=== PATIENT | male | born 1935 | race Caucasian/White ===

== ENCOUNTER → 2018-07-27 | Outpatient (CLI) | payer MEDICARE, OTHER ==
[~2018-07-27] MED LIST: BACL20TA PO; DILT180C88 PO; DOCU100T15 PO; FURO20TA3 PO; GABA100C9 PO; LEVO50TA7 PO; LORA-654 PO; LORA2TAB10 PO; POLY33504 PO; TAMS0.4C36 PO; ZOLP10TA6 PO
[2018-07-27 12:22] LABS: Urine Blood TRACE /uL (Negative); Urine Specific Gravity 1.019 (1.001-1.035)
[2018-07-27 12:53] LABS: Basophils # (auto) 0.1 uL; Basophils % (auto) 0.8 % (0.0-2.0); Eosinophils # (auto) 0.2 uL; Eosinophils % (auto) 1.3 % (0.0-7.0); Hematocrit 53.4 % (41.0-53.0); Hemoglobin 17.1 g/dL (13.5-17.5); Lymphocytes # (auto) 1.1 uL; Lymphocytes % (auto) 8.7 % (10.0-50.0); Mean Corpuscular Hemoglobin 27.8 pg (28.0-32.0); Mean Corpuscular Volume 86.6 fL (80.0-100.0); Monocytes # (auto) 1.1 uL; Monocytes % (auto) 8.9 % (0.0-12.0); Neutrophils # (auto) 9.9 uL; Neutrophils % (auto) 80.3 % (37.0-80.0); Nucleated Red Blood Cells % 0.6 %; Platelet Count (auto) 185 10^3/uL (140-450); Red Blood Cells 6.16 10^6/uL (4.5-5.90); Red Cell Distribution Width 16.9 % (11.8-14.3); White Blood Cell 12.3 10^3/uL (4.4-10.8)
[2018-07-27 13:40] LABS: Free T4 (Free Thyroxine) 1.04 ng/dL (0.89-1.76)
[2018-07-27 13:41] LABS: Prostate Specific Antigen 0.94 ng/mL (0.0-4.0)
[2018-07-27 14:21] LABS: Potassium 4.8 mmol/L (3.5-5.1)
[2018-07-27 14:36] LABS: Albumin 3.6 g/dL (3.4-5.0); BUN/Creatinine Ratio 19.1; Bilirubin, Total 0.9 mg/dL (0.2-1.0); Calcium 9.3 mg/dL (8.5-10.1); Total Protein 7.5 g/dL (6.4-8.2)
== END | disposition home or self-care (01) ==
LOC: LAB 08:23
PROVIDERS: ATTEND Internal Medicine Cardiovascular Disease
DX: E11.9 Type 2 diabetes mellitus without complications (principal); D51.9 Vitamin B12 deficiency anemia, unspecified; E03.9 Hypothyroidism, unspecified; E55.9 Vitamin D deficiency, unspecified; E29.1 Testicular hypofunction; C61 Malignant neoplasm of prostate; N39.0 Urinary tract infection, site not specified; Z79.899 Other long term (current) drug therapy
CPT/HCPCS: 36415; 80053; 80061; 81003; 82306; 82607; 83036; 84153; 84403; 84439; 84443; 85025; 87086

== ENCOUNTER → 2018-08-18 | Outpatient (CLI) | payer MEDICARE, OTHER ==
[~2018-08-18] MED LIST changes: -FURO20TA3 PO; -LORA-654 PO
== END | disposition home or self-care (01) ==
LOC: Rad HDHVI 10:05
PROVIDERS: ATTEND Internal Medicine Cardiovascular Disease
DX: I08.8 Other rheumatic multiple valve diseases (principal); I49.5 Sick sinus syndrome; R00.2 Palpitations; I11.9 Hypertensive heart disease without heart failure
CPT/HCPCS: 93306

== ENCOUNTER → 2018-08-24 | Emergency (ER) | payer MEDICARE, OTHER ==
[~2018-08-24] VITALS: Ht 182.9 cm; Wt 80.7 kg
[~2018-08-24] MED LIST changes: +ALBUTEROL SULF 2.5 MG/0.5ML(0.5%) NEB SOLN NEB ONE; +FAMOTIDINE (10MG/ML) 2ML VL IV ONE; +HYDROmorphone HCL 2 MG/ML VL IM ONE; +IPRATROPIUM BROM 0.5 MG/2.5ML INH SOL NEB ONE; +ONDANSETRON HCL 4 MG/2 ML VIAL IM ONE; +SODIUM CHLORIDE 0.9% 1,000 ML IV ONE
[2018-08-24 21:40] VITALS: BP 150/96
== END | disposition home or self-care (01) ==
LOC: ER 21:07
DX: S33.5XXA Sprain of ligaments of lumbar spine, initial encounter (principal); M54.16 Radiculopathy, lumbar region; M79.18 Myalgia, other site; J44.9 Chronic obstructive pulmonary disease, unspecified; E11.9 Type 2 diabetes mellitus without complications; I10 Essential (primary) hypertension; I25.2 Old myocardial infarction; Z86.39 Personal history of other endocrine, nutritional and metabolic disease; Z87.891 Personal history of nicotine dependence; Z88.0 Allergy status to penicillin; Z88.6 Allergy status to analgesic agent; Z79.899 Other long term (current) drug therapy; X58.XXXA Exposure to other specified factors, initial encounter; Y93.01 Activity, walking, marching and hiking; Y92.89 Other specified places as the place of occurrence of the external cause; Y99.8 Other external cause status
CPT/HCPCS: 96372; 99283; J1170; J2405

== ENCOUNTER → 2018-09-01 | Outpatient (CLI) | payer MEDICARE, OTHER ==
[~2018-09-01] MED LIST changes: -ALBUTEROL SULF 2.5 MG/0.5ML(0.5%) NEB SOLN NEB ONE; -FAMOTIDINE (10MG/ML) 2ML VL IV ONE; -HYDROmorphone HCL 2 MG/ML VL IM ONE; -IPRATROPIUM BROM 0.5 MG/2.5ML INH SOL NEB ONE; -ONDANSETRON HCL 4 MG/2 ML VIAL IM ONE; -SODIUM CHLORIDE 0.9% 1,000 ML IV ONE
== END | disposition home or self-care (01) ==
LOC: Rad HDHVI 10:37
PROVIDERS: ATTEND Internal Medicine
DX: M81.0 Age-related osteoporosis without current pathological fracture (principal)
CPT/HCPCS: 77078

== ENCOUNTER → 2018-09-06 | Outpatient (CLI) | payer MEDICARE, OTHER ==
[~2018-09-06] VITALS: Ht 182.9 cm; Wt 77.1 kg
[~2018-09-06] MED LIST changes: +ADENOSINE 65 MG in GIVE UN-DILUTED 0 ML IV ONE; +ADENOSINE 90 MG/30 ML INJ IV ONE
== END | disposition home or self-care (01) ==
LOC: Rad HDHVI 13:43
PROVIDERS: ATTEND Internal Medicine Cardiovascular Disease
DX: R94.31 Abnormal electrocardiogram [ECG] [EKG] (principal); I48.91 Unspecified atrial fibrillation; I25.10 Atherosclerotic heart disease of native coronary artery without angina pectoris; I25.2 Old myocardial infarction; I45.10 Unspecified right bundle-branch block; Z95.0 Presence of cardiac pacemaker
CPT/HCPCS: 78452; 93005; 96374; 96375; A9500; J0153

== ENCOUNTER 2018-11-11 14:04 | Inpatient (IN) | payer MEDICARE, OTHER ==
[~2018-11-11] VITALS: Ht 182.9 cm; Wt 70.1 kg
[~2018-11-11 14:04] MED LIST changes: -ADENOSINE 65 MG in GIVE UN-DILUTED 0 ML IV ONE; -ADENOSINE 90 MG/30 ML INJ IV ONE
[2018-11-11] MEDS ORDERED: KETOROLAC TROMETH 30 MG/ML 1ML VIAL IV ONE (16:00)
[2018-11-11 16:02] LABS: Basophils # (auto) 0 uL; Basophils % (auto) 0.2 % (0.0-2.0); Eosinophils # (auto) 0 uL; Hematocrit 49.6 % (41.0-53.0); Hemoglobin 16.6 g/dL (13.5-17.5); Lymphocytes # (auto) 0.5 uL; Lymphocytes % (auto) 3.4 % (10.0-50.0); Mean Corpuscular Hgb Conc. 33.4 g/dL (32.0-36.0); Mean Corpuscular Volume 86.7 fL (80.0-100.0); Monocytes # (auto) 0.7 uL; Monocytes % (auto) 4.8 % (0.0-12.0); Neutrophils # (auto) 14.3 uL; Neutrophils % (auto) 91.6 % (37.0-80.0); Nucleated Red Blood Cells % 0.1 %; Platelet Count (auto) 248 10^3/uL (140-450); Red Blood Cells 5.72 10^6/uL (4.5-5.90); Red Cell Distribution Width 16.5 % (11.8-14.3); White Blood Cell 15.6 10^3/uL (4.4-10.8)
[2018-11-11 16:12] LABS: Albumin 3.8 g/dL (3.4-5.0); BUN/Creatinine Ratio 14.7; Calcium 9.4 mg/dL (8.5-10.1); Potassium 3.9 mmol/L (3.5-5.1)
[2018-11-11 16:16] LABS: Bilirubin, Total 0.9 mg/dL (0.2-1.0); Total Protein 8.2 g/dL (6.4-8.2)
[2018-11-11] MEDS ORDERED: SODIUM CHLORIDE 0.9% 1,000 ML IV ONE (17:15)
[2018-11-11] MEDS ORDERED: LORazepam 2MG/ML-1ML VIAL IV ONE (19:00)
[2018-11-11 22:36] LABS: Urine Bacteria FEW /hpf (None Seen); Urine Blood 3+ /uL (Negative); Urine Hyaline Cast FEW /lpf (0 - 2); Urine Mucus FEW (None Seen); Urine Specific Gravity 1.017 (1.001-1.035); Urine WBC 3 /hpf (0 - 3)
[2018-11-11] MEDS ORDERED: NITROGLYCERIN 0.4 MG SL TAB SL PRN (23:30)
[2018-11-11] MEDS ORDERED: DILT-26 PO (23:41)
[2018-11-11] MEDS ORDERED: FUR20T PO (23:41)
[2018-11-11] MEDS ORDERED: CLOP75TA41 PO (23:41)
[2018-11-11] MEDS ORDERED: ZOLP5TAB5 PO (23:41)
[2018-11-11] MEDS ORDERED: METH500T6 PO (23:41)
[2018-11-11] MEDS ORDERED: [UNRECOGNIZED DRUG - CODE] TD (23:41)
[2018-11-11] MEDS ORDERED: AMLO10TA13 PO (23:41)
[2018-11-11] MEDS ORDERED: LIDO1PAD55 TD (23:41)
[2018-11-11] MEDS ORDERED: SERT-160 PO (23:41)
[2018-11-11] MEDS ORDERED: ATOR1TAB PO (23:41)
[2018-11-11] MEDS ORDERED: GABA-339 PO (23:41)
[2018-11-11] MEDS ORDERED: MEGE40TA15 PO (23:41)
[2018-11-12] VITALS (9 sets, daily range): BP systolic 139–168; BP diastolic 76–110
--- NOTE | 2018-11-12 00:18 | NUR ---
RECEIVED PATIENT FROM ED VIA STRETCHER, AWAKE, ALERT, ORIENTED X4. NO S/S OF RESPIRATORY DISTRESS, DENIES ABDOMINAL PAIN, NAUSEA, VOMITING AND DIARRHEA. ORIENTED ON PLAN OF CARE. BED IS LOCKED AND IN LOWEST POSITION, SIDE RAILS UP X2, BED ALARM ON, CALL LIGHT WITHIN REACH. WILL CONTINUE TO MONITOR
[2018-11-12] MEDS: SODIUM CHLORIDE 0.9% 1,000 ML IV SCH ×2 (00:31→13:50)
--- NOTE | 2018-11-12 02:10 | NUR ---
ABRASIONS ON THE RIGHT FOOT, LEFT ELBOW AND SKIN TEAR LEFT UPPER ARM NOTED. PHOTOS TAKEN
--- NOTE | 2018-11-12 04:13 | NUR ---
PAGED DR. VIEIRA REGARDING ORDER IN ED TO START ZOSYN 4.5 GM IV Q8H. UNABLE TO ENTER THE ORDER, PATIENT IS ALLERGIC TO PENICILLINS. WAITING FOR CALL BACK
[2018-11-12] MEDS ORDERED: ZOLPIDEM TARTRATE 5 MG TAB PO PRN (04:30)
[2018-11-12] MEDS ORDERED: GABAPENTIN 100 MG CAP PO SCH ×2 (04:30)
[2018-11-12] MEDS: MEGESTROL ACETATE 20 MG TAB PO SCH ×3 (04:30→21:35)
[2018-11-12] MEDS: METHOCARBAMOL 500 MG TAB PO SCH ×4 (05:42→21:36)
[2018-11-12] MEDS: LEVOTHYROXINE SODIUM 50 MCG TAB PO SCH (05:42)
--- NOTE | 2018-11-12 05:58 | NUR ---
CONTACTED DR. VIEIRA, PATIENT'S BLOOD PRESSURE IS AT 160'S SYSTOLIC, NO PRN ANTIHYPERTENSIVE MEDICATION ORDERED. WAITING FOR CALL BACK
--- NOTE | 2018-11-12 06:44 | NUR ---
LATEST BLOOD PRESSURE 148/76. WILL CONTINUE TO MONITOR
[2018-11-12] MEDS ORDERED: GABAPENTIN 100 MG CAP PO PRN (07:30)
--- NOTE | 2018-11-12 07:42 | NUR ---
CARE ENDORSED TO AM SHIFT RN
[2018-11-12] MEDS: amLODIPine BESYLATE 5 MG TAB PO SCH (10:00)
[2018-11-12] MEDS: FUROSEMIDE 20 MG TAB PO SCH ×2 (10:00→21:35)
[2018-11-12] MEDS: LIDOCAINE 5% TOPICAL PATCH TOP SCH (10:00)
[2018-11-12] MEDS: CLOPIDOGREL BISULFATE 75 MG TAB PO SCH (10:00)
[2018-11-12] MEDS: DILTIAZEM HCL 180MG ER CAP PO SCH (10:00)
[2018-11-12] MEDS: TAMSULOSIN HYDROCHLORIDE 0.4 MG CAP PO SCH (10:00)
[2018-11-12] MEDS ORDERED: ONDANSETRON HCL 4 MG/2 ML VIAL ONE (10:29)
[2018-11-12] MEDS ORDERED: ONDANSETRON HCL 4 MG/2 ML VIAL IV PRN (10:30)
--- NOTE | 2018-11-12 12:01 | NUR ---
Nutrition consult/assessment Notes Please see attached link for complete assessment Est. Needs IBW (81 kg): 3779-1781 kcal (23-25 kcal/kgBW), 65-81 gms pro (0.8-1.0 gms/kgBW r/t elev RFT). Will continue to monitor pertinent labs and reassess nutrient need prn Addendum: 11/12/18 at [address] Amended: Links added.
--- NOTE | 2018-11-12 12:30 | NUR ---
page sent to Dr Peres regarding patient's elevated bp, patient is in need of prn medication, SBP is currently 160, awaiting call back \
--- NOTE | 2018-11-12 13:38 | NUR ---
WOUND CARE NOTE: Wound care in to see patient per wound care request regarding wounds that are noted present on admission. Bedside nurse took photograph of patient's wounds upon admission for reference. Patient is 83 y/o male admitted for Abdominal Pain R/O Cholecystitis. Patient with a history of DM, COPD, htn, hernia, Throid disease, hyperlipidemia, pacemaker. Patient is resting in bed in Rm. 281A. He's awake, alert and able to verbalize needs. Patient is in no stated pain at this time. He's able to assist in turning and repositioning. His Foster score is 17. Patient noted with dry scabbed abrasion to his dorsal R 2nd toe, dry scabbed skin tear to Lt upper arm and open partial thickness skin tear to L elbow measuring 1x1cm. Skin tear is red with ecchymotic laina wound, no drainage/odor noted. Cleansed L elbow skin tear with NS,patted dry with gauze, applied Thera honey gel and covered with band aid. No pressure injury noted. Repositioned patient for comfort facing his Lt side, redistributed pressure points with pillows. Patient tolerated well. No further wound care monitoring needed at this time. RECOMMENDATIONS: BID/PRN cleaning and application of Barrier cream to sacrum as preventative; EOD/PRN dressing change to Lt elbow skin tear per MD order, Dietary Consult due to complaints of abdominal pain, frequent turning and repositioning schedule as condition permits, redistribute pressure points with pillows. Addendum: 11/12/18 at 1825 by Jess Fernandez RN Amended: Links added.
--- NOTE | 2018-11-12 19:23 | NUR ---
OPENING NOTES RECEIVED REPORT FROM DAY SHIFT NURSE. PT IS AWAKE AND ALERT AND ORIENTATED X 4 WITH NO S/S OF DISTRESS NOR PAIN. NO SOB NOTED. PT COMPLAINTS OF NAUSEA. BED IS IN LOWEST POSITION AND SIDE RAILS ARE UP X2. BED BRAKES ARE LOCKED AND CALL LIGHT IS WITH IN REACH. HOB IS 30 DEGREES.
[2018-11-12] MEDS ORDERED: cloNIDine HCL 0.1 MG TAB PO PRN (19:30)
[2018-11-12] MEDS: ZOLPIDEM TARTRATE 5 MG TAB PO SCH (21:35)
[2018-11-12] MEDS: ATORVASTATIN 20 MG TAB PO SCH (21:35)
--- NOTE | 2018-11-13 04:15 | NUR ---
IV removal IV DC'd with sterile technique, catheter fully intact. Pressure dressing applied to site. Patient tolerated procedure well.
--- NOTE | 2018-11-13 04:19 | NUR ---
IV insertion IV access obtained, via clean sterile technique by inserting 22 gauge catheter at left forearm after 2 attempts. IV secured properly. No trauma to site. Patient tolerated well.
[2018-11-13 05:36] VITALS: BP 123/54
[2018-11-13] MEDS: METHOCARBAMOL 500 MG TAB PO SCH ×3 (06:01→22:51)
[2018-11-13] MEDS: LEVOTHYROXINE SODIUM 50 MCG TAB PO SCH (06:01)
--- NOTE | 2018-11-13 07:34 | NUR ---
closing notes endorsed care to day shift nurseAmina.
--- NOTE | 2018-11-13 08:00 | NUR ---
OPENING NOTE: PATIENT RESTING IN BED. NASAL CANNULA IN PLACE. BED IN LOWEST POSITION. COMMODE AT BEDSIDE. CALL LIGHT ON BED WITHIN REACH. NO SIGNS OF DISTRESS NOTED.
[2018-11-13 09:00] VITALS: BP 121/81
[2018-11-13] MEDS: DILTIAZEM HCL 180MG ER CAP PO SCH (10:00)
[2018-11-13] MEDS: LIDOCAINE 5% TOPICAL PATCH TOP SCH (10:00)
[2018-11-13] MEDS: LORazepam 0.5 MG TAB PO PRN (10:32)
[2018-11-13] MEDS: MEGESTROL ACETATE 20 MG TAB PO SCH ×2 (10:43→22:52)
[2018-11-13] MEDS: CLOPIDOGREL BISULFATE 75 MG TAB PO SCH (10:43)
[2018-11-13] MEDS: amLODIPine BESYLATE 5 MG TAB PO SCH (10:44)
[2018-11-13] MEDS: TAMSULOSIN HYDROCHLORIDE 0.4 MG CAP PO SCH (10:44)
[2018-11-13] MEDS: FUROSEMIDE 20 MG TAB PO SCH ×2 (10:45→22:53)
[2018-11-13] MEDS: GABAPENTIN 300 MG CAP PO SCH ×2 (10:45→22:53)
--- NOTE | 2018-11-13 12:14 | NUR ---
FAMILY AT BEDSIDE. UPDATED ON PLAN OF CARE. DISCUSSED PATIENTS EMOTIONAL STATE, AND WORKED TOGETHER TO HELP SOOTHE PATIENT.
[2018-11-13 13:00] VITALS: BP 104/67
[2018-11-13] MEDS: SERTRALINE HCL 50 MG TAB PO SCH ×2 (14:11→22:53)
--- NOTE | 2018-11-13 18:56 | NUR ---
PATIENT RESTING IN BED. BED ALARM IN PLACE. NASAL CANNULA IN USE, BED IN LOWEST POSITION, AND EDUCATED USE OF CALL LIGHT. ASSISTED TO A COMFORTABLE POSITION IN BED, NO DISTRESS OR PAIN NOTED AT THIS TIME.
--- NOTE | 2018-11-13 19:15 | NUR ---
RE: Low urine output Patient reports one time of urination. Urine output total for shift 125ml. This RN asked patient if he felt the urge to urinate. Patient stated "I could probably go right now." This RN asked patient his normal urine output for the day. Patient stated "usually about what I went earlier, sometimes a little more." Bladder scan performed. 225ml of urine upon scan. This RN encouraged fluid intake. Patient verbalized understanding. Notified GHANSHYAM Lopez RN.
--- NOTE | 2018-11-13 19:20 | NUR ---
Fall precautions in place bed in lowest locked position, x2 side rails up and call light within reach. Bed alarm on for safety. Patient educated on fall precautions. Patient verbalized understanding.
--- NOTE | 2018-11-13 19:29 | NUR ---
OPENING NOTES RECEIVED REPORT FROM DAY SHIFT NURSE. PT IS AWAKE AND ALERT AND ORIENTATED X 4 WITH NO S/S OF DISTRESS NOR PAIN. NO SOB NOTED. BED IS IN LOWEST POSITION AND SIDE RAILS ARE UP X2. BED BRAKES ARE LOCKED AND CALL LIGHT IS WITH IN REACH. HOB IS 30 DEGREES.
--- NOTE | 2018-11-13 19:36 | NUR ---
CARE ENDORSED TO AUSTYN ENRIQUEZ
[2018-11-13 20:00] VITALS: BP 121/81
--- NOTE | 2018-11-13 20:37 | NUR ---
MD INFORMED MD ON PT'S STATUS. AWAITING CALL BACK.
--- NOTE | 2018-11-13 20:41 | NUR ---
MD PADILLA CALLED BACK, NEW ORDERS GIVEN.
[2018-11-13 22:00] VITALS: BP 102/66
[2018-11-13] MEDS: ZOLPIDEM TARTRATE 5 MG TAB PO SCH (22:00)
[2018-11-13] MEDS ORDERED: LEVOFLOXACIN 500MG 100 ML IV ONE (22:30)
[2018-11-13] MEDS: ATORVASTATIN 20 MG TAB PO SCH (22:53)
--- NOTE | 2018-11-14 04:28 | NUR ---
URINE OUTPUT PT HAD URINE OUTPUT OF 500ML.
[2018-11-14 05:00] VITALS: BP 105/57
[2018-11-14] MEDS: LEVOTHYROXINE SODIUM 50 MCG TAB PO SCH (05:55)
[2018-11-14] MEDS: METHOCARBAMOL 500 MG TAB PO SCH ×3 (05:55→22:14)
[2018-11-14] MEDS: SERTRALINE HCL 50 MG TAB PO SCH ×3 (05:56→22:14)
--- NOTE | 2018-11-14 07:17 | NUR ---
CLOSING NOTES ENDORSED CARE TO DAY SHIFT NURSESHARON.
--- NOTE | 2018-11-14 08:22 | NUR ---
OPENING NOTE: PATIENT RESTING IN BED. ASSISTED WITH REPOSITIONING AND ASSESSED SACRAL AREA. REMINDED PATIENT TO OFFLOAD BY TURNING EVERY 2 HOURS. ENCOURAGED WATER. PATIENT VERBALIZED UNDERSTANDING. PATIENT STATED HE FELT ANXIOUS. WILL MEDICATE ORDERED. CALL LIGHT IN HAND. BED LOCKED AND IN LOWEST POSITION. BED ALARM ON.
[2018-11-14 09:00] VITALS: BP 118/73
[2018-11-14] MEDS: TAMSULOSIN HYDROCHLORIDE 0.4 MG CAP PO SCH (09:06)
[2018-11-14] MEDS: MEGESTROL ACETATE 20 MG TAB PO SCH ×2 (09:06→22:14)
[2018-11-14] MEDS: DILTIAZEM HCL 180MG ER CAP PO SCH (09:06)
[2018-11-14] MEDS: CLOPIDOGREL BISULFATE 75 MG TAB PO SCH (09:07)
[2018-11-14] MEDS: FUROSEMIDE 20 MG TAB PO SCH ×2 (09:07→22:14)
[2018-11-14] MEDS: LORazepam 0.5 MG TAB PO PRN ×2 (09:07→17:08)
[2018-11-14] MEDS: GABAPENTIN 300 MG CAP PO SCH ×2 (09:07→22:14)
[2018-11-14] MEDS: amLODIPine BESYLATE 5 MG TAB PO SCH (09:08)
[2018-11-14] MEDS: LIDOCAINE 5% TOPICAL PATCH TOP SCH (09:08)
--- NOTE | 2018-11-14 11:10 | NUR ---
was at bedside - Dr. Peres Spoke with Dr. Peres RE: POC. Updated MD on urinary output during 11/13/18 shift. MD verbalized understanding. Continue to monitor input and output. Encourage fluid intake.
[2018-11-14 13:22] VITALS: BP 121/71
--- NOTE | 2018-11-14 13:37 | NUR ---
FAMILY AT BEDSIDE.
--- NOTE | 2018-11-14 13:57 | NUR ---
PATIENT TOLERATED MECHANICAL SOFT DIET. FAMILY UPDATED ON PLAN OF CARE. PATIENT RESTING IN BED.
[2018-11-14 16:46] VITALS: BP 111/77
--- NOTE | 2018-11-14 18:02 | NUR ---
CLOSING NOTE: PATIENT RESTING IN BED. NO SIGNS OF ANXIETY OR DISTRESS NOTED. FAMILY AT BEDSIDE. PATIENT ON ROOM AIR, BREATHING EVEN AND UNLABORED. CALL LIGHT WITHIN REACH.
--- NOTE | 2018-11-14 19:04 | NUR ---
ENDORSED CARE TO AUSTYN ENRIQUEZ
[2018-11-14 20:00] VITALS: BP 118/73
[2018-11-14 21:00] VITALS: BP 101/57
[2018-11-14] MEDS: ZOLPIDEM TARTRATE 5 MG TAB PO SCH (22:11)
[2018-11-14] MEDS: LEVOFLOXACIN 250MG 50 ML IV SCH (22:11)
[2018-11-14] MEDS: ATORVASTATIN 20 MG TAB PO SCH (22:14)
[2018-11-15 04:30] VITALS: BP 125/69
[2018-11-15] MEDS: SERTRALINE HCL 50 MG TAB PO SCH ×3 (05:56→21:20)
[2018-11-15] MEDS: LEVOTHYROXINE SODIUM 50 MCG TAB PO SCH (05:56)
[2018-11-15] MEDS: METHOCARBAMOL 500 MG TAB PO SCH ×3 (05:56→21:20)
--- NOTE | 2018-11-15 07:10 | NUR ---
Opening Note Received report from third shift lieutenant RN. Patient is awake, alert and oriented x4. No signs or symptoms of distress noted at this time. Patient is on 2L NC, denies shortness of breath at this time. Patient denies pain at this time. Reviewed plan of care with patient, patient verbalized understanding. Bed in low and locked position, call light within reach. Will continue to monitor Q1 hour and PRN.
--- NOTE | 2018-11-15 07:29 | NUR ---
CLOSING NOTES ENDORSED CARE TO DAY SHIFT NURSE, SUMMER.
[2018-11-15 09:10] VITALS: BP 115/73
--- NOTE | 2018-11-15 09:40 | NUR ---
PT at bedside Patient ambulated to hallway with physical therapist. Patient ambulated using front wheel walker. Patient tolerated well. Patient requested to go back to bed, did not want to sit up in chair. Will continue to monitor Q1 hour and PRN.
[2018-11-15] MEDS: LIDOCAINE 5% TOPICAL PATCH TOP SCH (10:00)
[2018-11-15] MEDS: CLOPIDOGREL BISULFATE 75 MG TAB PO SCH (10:06)
[2018-11-15] MEDS: GABAPENTIN 300 MG CAP PO SCH ×2 (10:06→21:20)
[2018-11-15] MEDS: TAMSULOSIN HYDROCHLORIDE 0.4 MG CAP PO SCH (10:06)
[2018-11-15] MEDS: amLODIPine BESYLATE 5 MG TAB PO SCH (10:07)
[2018-11-15] MEDS: MEGESTROL ACETATE 20 MG TAB PO SCH ×2 (10:07→21:20)
[2018-11-15] MEDS: FUROSEMIDE 20 MG TAB PO SCH ×2 (10:07→21:20)
[2018-11-15] MEDS: DILTIAZEM HCL 180MG ER CAP PO SCH (10:08)
--- NOTE | 2018-11-15 11:50 | NUR ---
family at bedside
[2018-11-15] MEDS: LORazepam 0.5 MG TAB PO PRN (11:52)
--- NOTE | 2018-11-15 11:53 | NUR ---
Anxiety Patient complains of feeling anxious, patient is visibly upset. Family at bedside. Per family patient gets "very emotional and anxious at times." Will medicate with PRN Ativan as ordered. Will continue to monitor Q1 hour and PRN.
[2018-11-15 12:42] VITALS: BP 118/89
[2018-11-15 16:32] VITALS: BP 122/67
--- NOTE | 2018-11-15 19:05 | NUR ---
Closing Note Report given to shift superintendent RN. No signs or symptoms of distress noted at this time.
--- NOTE | 2018-11-15 19:35 | NUR ---
OPENING SHIFT NOTE RECEIVED REPORT FROM DAYSHIFT RN. PATIENT LYING IN BED WATCHING TELEVISION, NO S/S OF DISTRESS OR SOB. PATIENT COMPLAINS OF BILAT FOOT PAIN, REQUESTING PAIN MEDICATION. WILL MEDICATE PER MEDICATION ORDERS. PATIENT A/O X4, BEDREST. UPDATED PATIENT ON POC, VERBALIZED UNDERSTANDING. BED LOCKED IN LOW POSITION, CALL LIGHT WITHIN REACH. WILL CONTINUE TO MONITOR PATIENT Q1HR AND PRN.
[2018-11-15] MEDS ORDERED: oxyCODONE ER 10 MG TAB PO PRN (20:45)
[2018-11-15] MEDS: LEVOFLOXACIN 250MG 50 ML IV SCH (21:19)
[2018-11-15] MEDS: ZOLPIDEM TARTRATE 5 MG TAB PO SCH (21:19)
[2018-11-15] MEDS: ATORVASTATIN 20 MG TAB PO SCH (21:20)
[2018-11-15 21:54] VITALS: BP 131/62
[2018-11-15] MEDS: oxyCODONE ER 10 MG TAB PO PRN (22:02)
[2018-11-16 05:18] VITALS: BP 112/68
[2018-11-16] MEDS: SERTRALINE HCL 50 MG TAB PO SCH ×2 (05:43→14:05)
[2018-11-16] MEDS: LEVOTHYROXINE SODIUM 50 MCG TAB PO SCH (05:43)
[2018-11-16] MEDS: METHOCARBAMOL 500 MG TAB PO SCH ×2 (05:43→14:05)
[2018-11-16] MEDS: oxyCODONE ER 10 MG TAB PO PRN (06:26)
--- NOTE | 2018-11-16 07:16 | NUR ---
Opening Note Received report from inpatient nursing aide RN. Patient is awake, alert and oriented x4. No signs or symptoms of distress noted at this time. Patient is on 2L NC, denies shortness of breath. Patient denies pain at this time. Reviewed plan of care with patient, patient verbalized understanding. Bed in low and locked position, call light within reach. Will continue to monitor Q1 hour and PRN.
[2018-11-16 08:47] VITALS: BP 127/66
[2018-11-16] MEDS: LIDOCAINE 5% TOPICAL PATCH TOP SCH (10:00)
[2018-11-16] MEDS: MEGESTROL ACETATE 20 MG TAB PO SCH (10:07)
[2018-11-16] MEDS: GABAPENTIN 300 MG CAP PO SCH (10:08)
[2018-11-16] MEDS: CLOPIDOGREL BISULFATE 75 MG TAB PO SCH (10:08)
[2018-11-16] MEDS: TAMSULOSIN HYDROCHLORIDE 0.4 MG CAP PO SCH (10:08)
[2018-11-16] MEDS: amLODIPine BESYLATE 5 MG TAB PO SCH (10:08)
[2018-11-16] MEDS: FUROSEMIDE 20 MG TAB PO SCH (10:08)
[2018-11-16] MEDS: DILTIAZEM HCL 180MG ER CAP PO SCH (10:09)
--- NOTE | 2018-11-16 11:36 | NUR ---
Paged Dr Prees Patient states he is constipated and is requesting stool softer. Awaiting call back
--- NOTE | 2018-11-16 11:40 | NUR ---
Spoke with Dr. Peres New orders received for Colace 100mg PO BID, and to place social service consult for discharge on home health. Will implement new orders.
[2018-11-16] MEDS ORDERED: DOCUSATE SOD 100 MG CAP PO SCH ×2 (11:45→22:00)
[2018-11-16 12:36] VITALS: BP 122/66
[2018-11-16 16:17] VITALS: BP 127/66
--- NOTE | 2018-11-16 16:22 | NUR ---
D/C Planning Per consult for Home Health. Information and choice letter was given to Pt and Pt [place] was at bed side. Pt stated he was previously with [facility] and wanted the same Home Health. Pt and [place] verbalize and agrees d/c plan. As requested contacted [facility] Ph: ) Fax: ) faxed medical records. Per Carmencita from [facility] to resume service for Pt and service to start tomorrow 11/17/18. Informed RN Summer. Addendum: 11/16/18 at 1632 by BRENNA HANYES Amended: Links added.
[2018-11-16 17:21] VITALS: BP 123/65
--- NOTE | 2018-11-16 17:33 | NUR ---
Discharge Discharge instructions given as ordered. Encourage to follow up with primary care physician as instructed. All questions and concerns addressed. Patient verbalized understanding. Medication reconciliation form completed and copy given to patient. IV catheter removed, catheter intact, pressure dressing applied. monitoring tech removed and sent back ICU. Patient taken down to private vehicle via wheelchair, accompanied by family and staff. No signs or symptoms of distress noted at this time.
== END 2018-11-16 17:33 | disposition home health service (06) | DRG 392 ==
LOC: ER 14:04 → TELE-WESTW 14:05
PROVIDERS: ADMIT Internal Medicine Cardiovascular Disease; ATTEND Internal Medicine Cardiovascular Disease
DX: A09 Infectious gastroenteritis and colitis, unspecified (principal); I50.30 Unspecified diastolic (congestive) heart failure; K80.20 Calculus of gallbladder without cholecystitis without obstruction; I25.10 Atherosclerotic heart disease of native coronary artery without angina pectoris; J44.9 Chronic obstructive pulmonary disease, unspecified; E78.5 Hyperlipidemia, unspecified; E11.9 Type 2 diabetes mellitus without complications; K59.00 Constipation, unspecified; R13.10 Dysphagia, unspecified; G62.9 Polyneuropathy, unspecified; I11.0 Hypertensive heart disease with heart failure; N40.0 Benign prostatic hyperplasia without lower urinary tract symptoms; Z95.5 Presence of coronary angioplasty implant and graft; Z88.5 Allergy status to narcotic agent; Z88.0 Allergy status to penicillin
CPT/HCPCS: 36415; 74176; 76705; 80053; 81001; 83690; 85025; 87081; 93005; 97110; 97116; 97163; 97530; G0378; J1885; J1956; J2405

== ENCOUNTER → 2019-02-21 | Outpatient (CLI) | payer MEDICARE, OTHER ==
[~2019-02-21] VITALS: Ht 1 cm; Wt 0.5 kg
[~2019-02-21] MED LIST changes: +AMLO10TA13 PO; +ATOR1TAB PO; +BACITRACIN TOP OINT 1 UD PKG TOP ONE; +CLOP75TA41 PO; +FUR20T PO; +GABA-339 PO; -GABA100C9 PO; +LIDO1PAD55 TD; +MEGE40TA15 PO; +METH500T6 PO; +SERT-160 PO; +[UNRECOGNIZED DRUG - CODE] TD
[2019-02-21 12:50] VITALS: BP 120/66
--- NOTE | 2019-02-21 12:50 | NUR ---
CHF PT ARRIVED AT THE [facility] FOR TX AND EVAL AND WOUND CARE FROM THE BACK OFFICE VSS 0 DISTRESS
--- NOTE | 2019-02-21 13:30 | NUR ---
Wound Care Wound care provided per MD order. Patient tolerated well and verbalized dressing care instructions. Follow up in clinic as directed. See e-MAR for medications given during this visit. HOME HEALTH TO FOLLOW UP WITH WOUND CARE AT HOME. LEFT ARM HAD LARGE SKIN TEAR WITH LOSS OF SKIN. MA FRANCE CLEANSED WITH NS AND DRESSED WITH STERI STRIPS AND NON ADHERENT TELFA WITH KERLIX AND STOCKINETTE APPLIED. PT TOLERATED WELL
[2019-02-21 13:58] VITALS: BP 117/82
--- NOTE | 2019-02-21 13:58 | NUR ---
Discharge Instructions See e-MAR for any mediations given with this visit. Patient education given on disease process. Patient verbalized understanding. Previous labs reviewed. Patient discharged in stable condition with after care instructions and follow up appointment. MEDICATION BACITRACIN OINTMENT 1 PACK TO LEFT ARM TEAR
== END | disposition home or self-care (01) ==
LOC: Rad HDHVI 12:36
PROVIDERS: ATTEND Internal Medicine Cardiovascular Disease
DX: I67.2 Cerebral atherosclerosis (principal); G31.9 Degenerative disease of nervous system, unspecified; S41.112A Laceration without foreign body of left upper arm, initial encounter; X58.XXXA Exposure to other specified factors, initial encounter; Y93.89 Activity, other specified; Y92.89 Other specified places as the place of occurrence of the external cause; Y99.8 Other external cause status
CPT/HCPCS: 70450; G0463

== ENCOUNTER → 2019-06-14 | Outpatient (CLI) | payer MEDICARE, OTHER ==
[~2019-06-14] MED LIST changes: -BACITRACIN TOP OINT 1 UD PKG TOP ONE; +METH500T22 PO; -METH500T6 PO
[2019-06-14 11:59] LABS: Basophils # (auto) 0.1 10 ^3/uL (0-0.2); Basophils % (auto) 0.5 % (0.0-2.0); Eosinophils # (auto) 0.4 10 ^3/uL (0-0.8); Eosinophils % (auto) 3.6 % (0.0-7.0); Hemoglobin 15.5 g/dL (13.5-17.5); Lymphocytes # (auto) 2.1 10 ^3/uL (0.4-5.4); Lymphocytes % (auto) 20.3 % (10.0-50.0); Mean Corpuscular Hemoglobin 29.2 pg (28.0-32.0); Mean Corpuscular Volume 88.6 fL (80.0-100.0); Monocytes # (auto) 0.9 10 ^3/uL (0-1.3); Monocytes % (auto) 8.6 % (0.0-12.0); Nucleated Red Blood Cells % 0.1 %; Platelet Count (auto) 236 10^3/uL (140-450); White Blood Cell 10.4 10^3/uL (4.4-10.8)
== END | disposition home or self-care (01) ==
LOC: LAB 09:55
PROVIDERS: ATTEND Internal Medicine Cardiovascular Disease
DX: H47.013 Ischemic optic neuropathy, bilateral (principal); I10 Essential (primary) hypertension
CPT/HCPCS: 36415; 85025; 85652; 86141

== ENCOUNTER 2019-06-22 12:13 | Inpatient (IN) | payer MEDICARE, OTHER ==
[~2019-06-22] VITALS: Ht 182.9 cm; Wt 71.5 kg
[~2019-06-22 12:13] MED LIST changes: -SUCCINYLCHOLINE CHLORIDE 20 MG/ML 10ML VIAL IV ONE
[2019-06-22] MEDS ORDERED: MEPERIDINE HCL (25 MG/ML) 1ML VIAL IV ONE (13:30)
[2019-06-22] MEDS ORDERED: ONDANSETRON HCL 4 MG/2 ML VIAL IV ONE (13:30)
[2019-06-22 13:52] LABS: Basophils # (auto) 0 10 ^3/uL (0-0.2); Basophils % (auto) 0.1 % (0.0-2.0); Eosinophils # (auto) 0 10 ^3/uL (0-0.8); Eosinophils % (auto) 0.1 % (0.0-7.0); Hematocrit 52.1 % (41.0-53.0); Hemoglobin 17.1 g/dL (13.5-17.5); Lymphocytes # (auto) 0.8 10 ^3/uL (0.4-5.4); Lymphocytes % (auto) 4.6 % (10.0-50.0); Mean Corpuscular Hemoglobin 29.1 pg (28.0-32.0); Mean Corpuscular Hgb Conc. 32.9 g/dL (32.0-36.0); Mean Corpuscular Volume 88.4 fL (80.0-100.0); Monocytes # (auto) 1.2 10 ^3/uL (0-1.3); Neutrophils # (auto) 15.4 10 ^3/uL (1.6-8.6); Neutrophils % (auto) 88.2 % (37.0-80.0); Nucleated Red Blood Cells % 0.2 %; Platelet Count (auto) 191 10^3/uL (140-450); Red Blood Cells 5.89 10^6/uL (4.5-5.90); Red Cell Distribution Width 14.8 % (11.8-14.3); White Blood Cell 17.5 10^3/uL (4.4-10.8)
[2019-06-22 14:08] LABS: Albumin 3.9 g/dL (3.4-5.0); Calcium 9.7 mg/dL (8.5-10.1)
[2019-06-22 14:11] LABS: BUN/Creatinine Ratio 17.3; Bilirubin, Total 1.1 mg/dL (0.2-1.0); Total Protein 8.7 g/dL (6.4-8.2)
[2019-06-22 14:12] LABS: Magnesium 2.4 mg/dL (1.6-2.6)
[2019-06-22 16:56] LABS: Urine WBC None Seen /hpf (0 - 3)
[2019-06-22] MEDS ORDERED: NITROGLYCERIN 0.4 MG SL TAB SL PRN (17:00)
[2019-06-22] MEDS ORDERED: HYDROmorphone HCL 2 MG/ML VL IV PRN (17:00)
[2019-06-22] MEDS ORDERED: LORazepam 0.5 MG TAB PO PRN (17:00)
[2019-06-22 17:05] LABS: Urine Bacteria NONE SEEN /hpf (None Seen); Urine Blood 1+ /uL (Negative); Urine Hyaline Cast FEW /lpf (0 - 2); Urine Mucus FEW (None Seen); Urine Specific Gravity 1.018 (1.001-1.035)
[2019-06-22] MEDS ORDERED: ZOLPIDEM TARTRATE 5 MG TAB PO SCH (18:00)
[2019-06-22 18:10] VITALS: BP 125/68
[2019-06-22] MEDS: LIDOCAINE 5% TOPICAL PATCH TOP SCH (18:49)
[2019-06-22] MEDS: TAMSULOSIN HYDROCHLORIDE 0.4 MG CAP PO SCH (18:50)
[2019-06-22] MEDS: FUROSEMIDE 20 MG TAB PO SCH (18:51)
[2019-06-22 21:49] VITALS: BP 126/66
[2019-06-22] MEDS ORDERED: BACLOFEN 10 MG TAB PO SCH (22:00)
[2019-06-22] MEDS: GABAPENTIN 300 MG CAP PO SCH (22:52)
[2019-06-22] MEDS: ATORVASTATIN 20 MG TAB PO SCH (22:52)
[2019-06-22] MEDS: MEGESTROL ACETATE 20 MG TAB PO SCH (22:53)
[2019-06-22] MEDS: SERTRALINE HCL 50 MG TAB PO SCH (22:53)
[2019-06-22] MEDS: ZOLPIDEM TARTRATE 5 MG TAB PO SCH ×2 (22:53→22:56)
[2019-06-22] MEDS: METHOCARBAMOL 500 MG TAB PO SCH (22:54)
[2019-06-23 04:59] VITALS: BP 117/60
[2019-06-23] MEDS: GABAPENTIN 300 MG CAP PO SCH ×3 (05:43→21:54)
[2019-06-23] MEDS: LEVOTHYROXINE SODIUM 50 MCG TAB PO SCH (05:43)
[2019-06-23] MEDS: FUROSEMIDE 20 MG TAB PO SCH ×2 (05:44→17:55)
[2019-06-23] MEDS: SERTRALINE HCL 50 MG TAB PO SCH ×3 (05:44→21:53)
[2019-06-23] MEDS: METHOCARBAMOL 500 MG TAB PO SCH ×3 (05:44→21:53)
[2019-06-23 09:00] VITALS: BP 109/64
[2019-06-23] MEDS: POLYETHYLENE GLYCOL 17 GM PWDR PO SCH (10:27)
[2019-06-23] MEDS: dilTIAZem HCL 180MG ER CAP PO SCH (10:28)
[2019-06-23] MEDS: MEGESTROL ACETATE 20 MG TAB PO SCH ×2 (10:28→21:54)
[2019-06-23] MEDS: amLODIPine BESYLATE 5 MG TAB PO SCH (10:29)
[2019-06-23 11:30] LABS: INR 1.07 (0.9-1.15); Partial Thromboplastin Time 30.8 sec (23.64-32.05)
[2019-06-23 13:00] VITALS: BP 112/61
[2019-06-23 13:17] LABS: Basophils # (auto) 0 10 ^3/uL (0-0.2); Basophils % (auto) 0.3 % (0.0-2.0); Eosinophils # (auto) 0 10 ^3/uL (0-0.8); Eosinophils % (auto) 0.3 % (0.0-7.0); Hematocrit 45.3 % (41.0-53.0); Hemoglobin 15.3 g/dL (13.5-17.5); Lymphocytes % (auto) 6.5 % (10.0-50.0); Mean Corpuscular Hemoglobin 29.9 pg (28.0-32.0); Mean Corpuscular Hgb Conc. 33.7 g/dL (32.0-36.0); Mean Corpuscular Volume 88.7 fL (80.0-100.0); Monocytes # (auto) 1.3 10 ^3/uL (0-1.3); Monocytes % (auto) 8.4 % (0.0-12.0); Neutrophils % (auto) 84.5 % (37.0-80.0); Platelet Count (auto) 164 10^3/uL (140-450); Red Blood Cells 5.11 10^6/uL (4.5-5.90); White Blood Cell 15.4 10^3/uL (4.4-10.8)
[2019-06-23 17:00] VITALS: BP 113/70
[2019-06-23] MEDS: TAMSULOSIN HYDROCHLORIDE 0.4 MG CAP PO SCH (17:55)
[2019-06-23] MEDS: LIDOCAINE 5% TOPICAL PATCH TOP SCH (17:55)
[2019-06-23] MEDS: ZOLPIDEM TARTRATE 5 MG TAB PO SCH (21:54)
[2019-06-23] MEDS: ATORVASTATIN 20 MG TAB PO SCH (21:55)
[2019-06-23 22:00] VITALS: BP 103/60
[2019-06-24 05:00] VITALS: BP 116/64
[2019-06-24] MEDS: FUROSEMIDE 20 MG TAB PO SCH ×2 (05:25→17:39)
[2019-06-24] MEDS: SERTRALINE HCL 50 MG TAB PO SCH ×3 (05:27→21:27)
[2019-06-24] MEDS: METHOCARBAMOL 500 MG TAB PO SCH ×3 (05:27→21:25)
[2019-06-24] MEDS: GABAPENTIN 300 MG CAP PO SCH ×3 (05:27→21:25)
[2019-06-24 05:42] LABS: Basophils # (auto) 0 10 ^3/uL (0-0.2); Basophils % (auto) 0.3 % (0.0-2.0); Eosinophils # (auto) 0.3 10 ^3/uL (0-0.8); Eosinophils % (auto) 1.9 % (0.0-7.0); Hematocrit 42.6 % (41.0-53.0); Hemoglobin 14.5 g/dL (13.5-17.5); Lymphocytes # (auto) 1.2 10 ^3/uL (0.4-5.4); Lymphocytes % (auto) 7.3 % (10.0-50.0); Mean Corpuscular Hemoglobin 29.8 pg (28.0-32.0); Mean Corpuscular Hgb Conc. 33.9 g/dL (32.0-36.0); Monocytes # (auto) 1.2 10 ^3/uL (0-1.3); Monocytes % (auto) 7.2 % (0.0-12.0); Neutrophils # (auto) 13.5 10 ^3/uL (1.6-8.6); Neutrophils % (auto) 83.3 % (37.0-80.0); Nucleated Red Blood Cells % 0.1 %; Platelet Count (auto) 144 10^3/uL (140-450); Red Blood Cells 4.85 10^6/uL (4.5-5.90); Red Cell Distribution Width 14.9 % (11.8-14.3); White Blood Cell 16.1 10^3/uL (4.4-10.8)
[2019-06-24 05:58] LABS: Albumin 3.1 g/dL (3.4-5.0); Calcium 8.9 mg/dL (8.5-10.1); Potassium 3.5 mmol/L (3.5-5.1)
[2019-06-24 06:02] LABS: BUN/Creatinine Ratio 25.3; Bilirubin, Total 1.2 mg/dL (0.2-1.0); Total Protein 7.1 g/dL (6.4-8.2)
[2019-06-24] MEDS: LEVOTHYROXINE SODIUM 50 MCG TAB PO SCH (06:15)
[2019-06-24] MEDS ORDERED: CLINDAMYCIN 600MG IV 50 ML IV ONE (07:58)
[2019-06-24] MEDS ORDERED: PHENYLEPHRINE HCL 10 MG/ML VL IV ONE (08:05)
[2019-06-24] MEDS ORDERED: SUCCINYLCHOLINE 20mg/ml 100mg/5ml SYRINGE IV ONE (08:05)
[2019-06-24] MEDS ORDERED: fentaNYL CITRATE 100 MCG/2 ML VL ONE (08:26)
[2019-06-24] MEDS ORDERED: MEPERIDINE HCL (25 MG/ML) 1ML VIAL ONE (08:26)
[2019-06-24] MEDS ORDERED: MIDAZOLAM HCL 1MG/1ML-2 ML VIAL ONE (08:27)
[2019-06-24] MEDS ORDERED: DexAMETHasone SOD PHOS 10MG/1ML VIAL INJ ONE (08:40)
[2019-06-24] MEDS ORDERED: ETOMIDATE (2MG/ML) 20ML VIAL IV ONE (08:40)
[2019-06-24 09:00] VITALS: BP 110/76
[2019-06-24] MEDS ORDERED: ONDANSETRON HCL 4 MG/2 ML VIAL IV PRN (09:00)
[2019-06-24] MEDS ORDERED: MIDAZOLAM HCL 1MG/1ML-2 ML VIAL IV PRN (09:00)
[2019-06-24] MEDS ORDERED: LABETALOL HCL 5 MG/ML 4ML SYRINGE IV PRN (09:00)
[2019-06-24] MEDS ORDERED: HYDROmorphone HCL 2 MG/ML VL IV PRN ×2 (09:00→10:30)
[2019-06-24] MEDS ORDERED: ePHEDrine SULFATE 50 MG/ML AMP IV PRN (09:00)
[2019-06-24] MEDS ORDERED: ACCU-CHEK COMFORT CURVE STRIP VI ONE (09:00)
[2019-06-24] MEDS: dilTIAZem HCL 180MG ER CAP PO SCH (10:00)
[2019-06-24] MEDS: levoFLOXacin 500MG 100 ML IV SCH (10:00)
[2019-06-24] MEDS: MEGESTROL ACETATE 20 MG TAB PO SCH ×2 (10:00→21:24)
[2019-06-24] MEDS: POLYETHYLENE GLYCOL 17 GM PWDR PO SCH (10:00)
[2019-06-24] MEDS: amLODIPine BESYLATE 5 MG TAB PO SCH (10:00)
[2019-06-24 13:00] VITALS: BP 120/75
[2019-06-24] MEDS: CLINDAMYCIN 600MG IV 50 ML IV SCH ×2 (14:50→21:23)
[2019-06-24 17:00] VITALS: BP 123/72
[2019-06-24] MEDS: TAMSULOSIN HYDROCHLORIDE 0.4 MG CAP PO SCH (17:39)
[2019-06-24] MEDS: LIDOCAINE 5% TOPICAL PATCH TOP SCH (17:39)
[2019-06-24] MEDS: ATORVASTATIN 20 MG TAB PO SCH (21:24)
[2019-06-24] MEDS: BACLOFEN 10 MG TAB PO SCH (21:25)
[2019-06-24] MEDS: ZOLPIDEM TARTRATE 5 MG TAB PO SCH (21:26)
[2019-06-24 22:00] VITALS: BP 111/66
[2019-06-24] MEDS ORDERED: GABAPENTIN 300 MG CAP PO SCH ×2 (22:00)
[2019-06-25 05:00] VITALS: BP 112/78
[2019-06-25] MEDS: SERTRALINE HCL 50 MG TAB PO SCH ×3 (06:05→22:43)
[2019-06-25] MEDS: METHOCARBAMOL 500 MG TAB PO SCH ×3 (06:06→22:42)
[2019-06-25] MEDS: BACLOFEN 10 MG TAB PO SCH ×3 (06:07→22:46)
[2019-06-25] MEDS: LEVOTHYROXINE SODIUM 50 MCG TAB PO SCH (06:08)
[2019-06-25] MEDS: CLINDAMYCIN 600MG IV 50 ML IV SCH (06:10)
[2019-06-25] MEDS: FUROSEMIDE 20 MG TAB PO SCH ×2 (06:10→17:42)
[2019-06-25 06:48] LABS: Hematocrit 39.1 % (41.0-53.0)
[2019-06-25 08:00] VITALS: BP 112/78
[2019-06-25 09:00] VITALS: BP 102/71
[2019-06-25] MEDS: levoFLOXacin 500MG 100 ML IV SCH (09:54)
[2019-06-25] MEDS: GABAPENTIN 300 MG CAP PO SCH ×2 (09:55→22:47)
[2019-06-25] MEDS: dilTIAZem HCL 180MG ER CAP PO SCH (09:55)
[2019-06-25] MEDS: MEGESTROL ACETATE 20 MG TAB PO SCH ×2 (09:55→22:42)
[2019-06-25] MEDS: POLYETHYLENE GLYCOL 17 GM PWDR PO SCH (09:55)
[2019-06-25] MEDS: amLODIPine BESYLATE 5 MG TAB PO SCH ×2 (09:56→22:46)
[2019-06-25 13:00] VITALS: BP 92/60
[2019-06-25 17:00] VITALS: BP 107/62
[2019-06-25] MEDS: TAMSULOSIN HYDROCHLORIDE 0.4 MG CAP PO SCH (17:41)
[2019-06-25] MEDS: LIDOCAINE 5% TOPICAL PATCH TOP SCH (17:42)
[2019-06-25 22:00] VITALS: BP 108/57
[2019-06-25] MEDS: ZOLPIDEM TARTRATE 5 MG TAB PO SCH ×2 (22:00→22:44)
[2019-06-25] MEDS: ATORVASTATIN 20 MG TAB PO SCH (22:43)
[2019-06-25] MEDS: DOCUSATE SOD 100 MG CAP PO PRN (22:44)
[2019-06-26 04:36] VITALS: BP 106/68
[2019-06-26 06:20] LABS: Hematocrit 37.7 % (41.0-53.0); Hemoglobin 13.1 g/dL (13.5-17.5)
[2019-06-26] MEDS: BACLOFEN 10 MG TAB PO SCH ×3 (06:33→21:04)
[2019-06-26] MEDS: SERTRALINE HCL 50 MG TAB PO SCH ×3 (06:33→22:36)
[2019-06-26] MEDS: METHOCARBAMOL 500 MG TAB PO SCH ×3 (06:33→21:05)
[2019-06-26] MEDS: FUROSEMIDE 20 MG TAB PO SCH ×2 (06:34→17:52)
[2019-06-26] MEDS: LEVOTHYROXINE SODIUM 50 MCG TAB PO SCH (06:41)
[2019-06-26 08:00] VITALS: BP 106/68
[2019-06-26 08:31] VITALS: BP 97/64
[2019-06-26] MEDS: MEGESTROL ACETATE 20 MG TAB PO SCH ×2 (09:38→21:04)
[2019-06-26] MEDS: dilTIAZem HCL 180MG ER CAP PO SCH (09:38)
[2019-06-26] MEDS: levoFLOXacin 500MG 100 ML IV SCH (09:38)
[2019-06-26] MEDS: amLODIPine BESYLATE 5 MG TAB PO SCH (09:39)
[2019-06-26] MEDS: GABAPENTIN 300 MG CAP PO SCH ×2 (09:39→21:05)
[2019-06-26] MEDS: POLYETHYLENE GLYCOL 17 GM PWDR PO SCH (09:39)
[2019-06-26] MEDS: ENOXAPARIN SOD 40 MG/0.4 ML SYRINGE SC SCH (09:51)
[2019-06-26 12:45] VITALS: BP 110/63
[2019-06-26 17:38] VITALS: BP 99/57
[2019-06-26] MEDS: LIDOCAINE 5% TOPICAL PATCH TOP SCH (17:52)
[2019-06-26] MEDS: TAMSULOSIN HYDROCHLORIDE 0.4 MG CAP PO SCH (17:52)
[2019-06-26] MEDS: ATORVASTATIN 20 MG TAB PO SCH (21:03)
[2019-06-26 22:00] VITALS: BP 113/51
[2019-06-26] MEDS: ZOLPIDEM TARTRATE 5 MG TAB PO SCH (22:00)
[2019-06-27 05:00] VITALS: BP 104/62
[2019-06-27] MEDS: FUROSEMIDE 20 MG TAB PO SCH ×2 (05:47→17:58)
[2019-06-27] MEDS: METHOCARBAMOL 500 MG TAB PO SCH ×3 (05:47→22:29)
[2019-06-27] MEDS: SERTRALINE HCL 50 MG TAB PO SCH ×3 (05:48→22:28)
[2019-06-27] MEDS: BACLOFEN 10 MG TAB PO SCH ×3 (05:48→22:29)
[2019-06-27] MEDS: LEVOTHYROXINE SODIUM 50 MCG TAB PO SCH (05:50)
[2019-06-27 05:52] LABS: Hemoglobin 12.9 g/dL (13.5-17.5)
[2019-06-27 09:00] VITALS: BP 96/59
[2019-06-27] MEDS: dilTIAZem HCL 180MG ER CAP PO SCH (10:00)
[2019-06-27] MEDS: amLODIPine BESYLATE 5 MG TAB PO SCH (10:00)
[2019-06-27] MEDS: levoFLOXacin 500MG 100 ML IV SCH (10:13)
[2019-06-27] MEDS: HYDROcodone-ACET 5/325MG TAB PO PRN (10:23)
[2019-06-27] MEDS: MEGESTROL ACETATE 20 MG TAB PO SCH ×2 (10:24→22:29)
[2019-06-27] MEDS: POLYETHYLENE GLYCOL 17 GM PWDR PO SCH (10:24)
[2019-06-27] MEDS: GABAPENTIN 300 MG CAP PO SCH ×2 (10:25→22:28)
[2019-06-27] MEDS: ENOXAPARIN SOD 40 MG/0.4 ML SYRINGE SC SCH (10:25)
[2019-06-27 12:40] VITALS: BP 110/62
[2019-06-27 13:33] LABS: Albumin 2.6 g/dL (3.4-5.0); Potassium 3.3 mmol/L (3.5-5.1)
[2019-06-27 13:36] LABS: BUN/Creatinine Ratio 25.4; Bilirubin, Total 0.7 mg/dL (0.2-1.0); Total Protein 6.6 g/dL (6.4-8.2)
[2019-06-27 17:29] VITALS: BP 105/68
[2019-06-27] MEDS: TAMSULOSIN HYDROCHLORIDE 0.4 MG CAP PO SCH (17:58)
[2019-06-27] MEDS: LIDOCAINE 5% TOPICAL PATCH TOP SCH (17:59)
[2019-06-27 22:00] VITALS: BP 102/60
[2019-06-27] MEDS: ZOLPIDEM TARTRATE 5 MG TAB PO SCH (22:00)
[2019-06-27] MEDS: ATORVASTATIN 20 MG TAB PO SCH (22:28)
[2019-06-27] MEDS ORDERED: POTASSIUM CHL 20 Meq TABLET PO ONE (23:00)
[2019-06-28 05:00] VITALS: BP 110/63
[2019-06-28] MEDS: SERTRALINE HCL 50 MG TAB PO SCH ×3 (06:13→21:29)
[2019-06-28] MEDS: METHOCARBAMOL 500 MG TAB PO SCH ×3 (06:13→22:04)
[2019-06-28] MEDS: LEVOTHYROXINE SODIUM 50 MCG TAB PO SCH (06:14)
[2019-06-28] MEDS: FUROSEMIDE 20 MG TAB PO SCH ×2 (06:14→17:26)
[2019-06-28] MEDS: BACLOFEN 10 MG TAB PO SCH ×3 (06:16→21:27)
[2019-06-28 07:42] LABS: Basophils # (auto) 0 10 ^3/uL (0-0.2); Basophils % (auto) 0.2 % (0.0-2.0); Eosinophils # (auto) 0.3 10 ^3/uL (0-0.8); Eosinophils % (auto) 2.6 % (0.0-7.0); Hemoglobin 12.9 g/dL (13.5-17.5); Lymphocytes # (auto) 1.1 10 ^3/uL (0.4-5.4); Lymphocytes % (auto) 10.9 % (10.0-50.0); Mean Corpuscular Hemoglobin 29.7 pg (28.0-32.0); Mean Corpuscular Hgb Conc. 33.9 g/dL (32.0-36.0); Mean Corpuscular Volume 87.7 fL (80.0-100.0); Monocytes # (auto) 0.9 10 ^3/uL (0-1.3); Monocytes % (auto) 9.5 % (0.0-12.0); Neutrophils # (auto) 7.6 10 ^3/uL (1.6-8.6); Neutrophils % (auto) 76.8 % (37.0-80.0); Platelet Count (auto) 161 10^3/uL (140-450); Red Blood Cells 4.33 10^6/uL (4.5-5.90); Red Cell Distribution Width 14.8 % (11.8-14.3); White Blood Cell 9.9 10^3/uL (4.4-10.8)
[2019-06-28 08:36] VITALS: BP 114/70
[2019-06-28] MEDS: POLYETHYLENE GLYCOL 17 GM PWDR PO SCH (08:47)
[2019-06-28] MEDS: levoFLOXacin 500MG 100 ML IV SCH (08:48)
[2019-06-28] MEDS: GABAPENTIN 300 MG CAP PO SCH ×2 (08:50→21:28)
[2019-06-28] MEDS: MEGESTROL ACETATE 20 MG TAB PO SCH ×2 (08:51→21:28)
[2019-06-28] MEDS: amLODIPine BESYLATE 5 MG TAB PO SCH (08:51)
[2019-06-28] MEDS: ENOXAPARIN SOD 40 MG/0.4 ML SYRINGE SC SCH (08:51)
[2019-06-28] MEDS: dilTIAZem HCL 180MG ER CAP PO SCH (08:52)
[2019-06-28 13:00] VITALS: BP 109/63
[2019-06-28 16:30] VITALS: BP 119/67
[2019-06-28] MEDS: HYDROcodone-ACET 5/325MG TAB PO PRN (17:25)
[2019-06-28] MEDS: TAMSULOSIN HYDROCHLORIDE 0.4 MG CAP PO SCH (17:25)
[2019-06-28] MEDS: LIDOCAINE 5% TOPICAL PATCH TOP SCH (17:26)
[2019-06-28 20:15] VITALS: BP 120/70
[2019-06-28] MEDS: ATORVASTATIN 20 MG TAB PO SCH (21:27)
[2019-06-28] MEDS: ZOLPIDEM TARTRATE 5 MG TAB PO SCH (21:27)
[2019-06-28 22:00] VITALS: BP 120/70
[2019-06-29 05:00] VITALS: BP 116/60
[2019-06-29] MEDS: FUROSEMIDE 20 MG TAB PO SCH ×2 (06:29→18:43)
[2019-06-29] MEDS: BACLOFEN 10 MG TAB PO SCH ×3 (06:29→21:31)
[2019-06-29] MEDS: SERTRALINE HCL 50 MG TAB PO SCH ×3 (06:30→21:32)
[2019-06-29] MEDS: LEVOTHYROXINE SODIUM 50 MCG TAB PO SCH (06:32)
[2019-06-29] MEDS: METHOCARBAMOL 500 MG TAB PO SCH ×3 (06:58→21:32)
[2019-06-29 09:00] VITALS: BP 108/59
[2019-06-29] MEDS: MEGESTROL ACETATE 20 MG TAB PO SCH ×2 (10:00→21:32)
[2019-06-29] MEDS: dilTIAZem HCL 180MG ER CAP PO SCH (10:00)
[2019-06-29] MEDS: amLODIPine BESYLATE 5 MG TAB PO SCH (10:00)
[2019-06-29] MEDS: POLYETHYLENE GLYCOL 17 GM PWDR PO SCH (10:00)
[2019-06-29] MEDS: ENOXAPARIN SOD 40 MG/0.4 ML SYRINGE SC SCH (11:00)
[2019-06-29] MEDS: levoFLOXacin 500MG 100 ML IV SCH (11:00)
[2019-06-29] MEDS: GABAPENTIN 300 MG CAP PO SCH ×2 (11:00→21:31)
[2019-06-29 12:36] VITALS: BP 103/63
[2019-06-29 16:36] VITALS: BP 112/68
[2019-06-29] MEDS: LIDOCAINE 5% TOPICAL PATCH TOP SCH (18:42)
[2019-06-29] MEDS: TAMSULOSIN HYDROCHLORIDE 0.4 MG CAP PO SCH (18:43)
[2019-06-29 20:15] VITALS: BP 122/58
[2019-06-29] MEDS: ATORVASTATIN 20 MG TAB PO SCH (21:31)
[2019-06-29] MEDS: ZOLPIDEM TARTRATE 5 MG TAB PO SCH (21:31)
[2019-06-29 22:00] VITALS: BP 122/58
[2019-06-30 05:00] VITALS: BP 104/67
[2019-06-30] MEDS: SERTRALINE HCL 50 MG TAB PO SCH ×3 (05:40→21:34)
[2019-06-30] MEDS: METHOCARBAMOL 500 MG TAB PO SCH ×3 (05:40→21:32)
[2019-06-30] MEDS: FUROSEMIDE 20 MG TAB PO SCH ×2 (05:41→19:04)
[2019-06-30] MEDS: BACLOFEN 10 MG TAB PO SCH ×3 (05:41→21:33)
[2019-06-30] MEDS: LEVOTHYROXINE SODIUM 50 MCG TAB PO SCH (06:01)
[2019-06-30 08:00] VITALS: BP 118/64
[2019-06-30] MEDS: MEGESTROL ACETATE 20 MG TAB PO SCH ×2 (10:00→21:34)
[2019-06-30] MEDS: amLODIPine BESYLATE 5 MG TAB PO SCH (10:00)
[2019-06-30] MEDS: dilTIAZem HCL 180MG ER CAP PO SCH (10:00)
[2019-06-30] MEDS: POLYETHYLENE GLYCOL 17 GM PWDR PO SCH (11:00)
[2019-06-30 11:56] VITALS: BP 115/69
[2019-06-30] MEDS: GABAPENTIN 300 MG CAP PO SCH ×2 (12:08→21:33)
[2019-06-30 16:45] VITALS: BP 107/62
[2019-06-30] MEDS: TAMSULOSIN HYDROCHLORIDE 0.4 MG CAP PO SCH (18:15)
[2019-06-30] MEDS: LIDOCAINE 5% TOPICAL PATCH TOP SCH (20:00)
[2019-06-30] MEDS: ATORVASTATIN 20 MG TAB PO SCH (21:32)
[2019-06-30] MEDS: ZOLPIDEM TARTRATE 5 MG TAB PO SCH (21:34)
[2019-06-30 21:58] VITALS: BP 110/66
[2019-07-01 05:11] VITALS: BP 95/56
[2019-07-01] MEDS: BACLOFEN 10 MG TAB PO SCH ×3 (05:23→21:40)
[2019-07-01] MEDS: SERTRALINE HCL 50 MG TAB PO SCH ×3 (05:23→21:40)
[2019-07-01] MEDS: LEVOTHYROXINE SODIUM 50 MCG TAB PO SCH (05:23)
[2019-07-01] MEDS: FUROSEMIDE 20 MG TAB PO SCH ×2 (05:23→19:04)
[2019-07-01] MEDS: METHOCARBAMOL 500 MG TAB PO SCH ×3 (05:27→21:40)
[2019-07-01 08:00] VITALS: BP_SYST 136; BP_SYST 95; BP_DIAS 56; BP_DIAS 76
[2019-07-01 12:00] VITALS: BP 112/68
[2019-07-01] MEDS: HYDROcodone-ACET 5/325MG TAB PO PRN (13:39)
[2019-07-01] MEDS: GABAPENTIN 300 MG CAP PO SCH ×2 (13:41→21:40)
[2019-07-01] MEDS: levoFLOXacin 500MG 100 ML IV SCH (13:42)
[2019-07-01] MEDS: MEGESTROL ACETATE 20 MG TAB PO SCH ×2 (13:43→21:45)
[2019-07-01] MEDS: dilTIAZem HCL 180MG ER CAP PO SCH (13:43)
[2019-07-01] MEDS: amLODIPine BESYLATE 5 MG TAB PO SCH (13:44)
[2019-07-01] MEDS: ENOXAPARIN SOD 40 MG/0.4 ML SYRINGE SC SCH (13:44)
[2019-07-01 16:46] VITALS: BP 115/68
[2019-07-01 17:16] LABS: Basophils # (auto) 0.1 10 ^3/uL (0-0.2); Basophils % (auto) 0.4 % (0.0-2.0); Eosinophils # (auto) 0.2 10 ^3/uL (0-0.8); Eosinophils % (auto) 1.9 % (0.0-7.0); Hematocrit 37.3 % (41.0-53.0); Hemoglobin 12.6 g/dL (13.5-17.5); Lymphocytes # (auto) 1.3 10 ^3/uL (0.4-5.4); Lymphocytes % (auto) 10.3 % (10.0-50.0); Mean Corpuscular Hemoglobin 29.6 pg (28.0-32.0); Mean Corpuscular Hgb Conc. 33.9 g/dL (32.0-36.0); Mean Corpuscular Volume 87.5 fL (80.0-100.0); Monocytes # (auto) 1.4 10 ^3/uL (0-1.3); Monocytes % (auto) 10.4 % (0.0-12.0); Platelet Count (auto) 232 10^3/uL (140-450); Red Blood Cells 4.27 10^6/uL (4.5-5.90); Red Cell Distribution Width 14.7 % (11.8-14.3)
[2019-07-01 17:26] LABS: Calcium 8.2 mg/dL (8.5-10.1); Potassium 3.4 mmol/L (3.5-5.1)
[2019-07-01 17:28] LABS: BUN/Creatinine Ratio 28.9
[2019-07-01] MEDS: LIDOCAINE 5% TOPICAL PATCH TOP SCH (19:04)
[2019-07-01] MEDS: TAMSULOSIN HYDROCHLORIDE 0.4 MG CAP PO SCH (19:08)
[2019-07-01] MEDS: ATORVASTATIN 20 MG TAB PO SCH (21:40)
[2019-07-01] MEDS: ZOLPIDEM TARTRATE 5 MG TAB PO SCH (21:41)
[2019-07-01 22:00] VITALS: BP 110/58
[2019-07-02 05:35] VITALS: BP 94/62
[2019-07-02] MEDS: BACLOFEN 10 MG TAB PO SCH ×3 (05:42→21:29)
[2019-07-02] MEDS: DOCUSATE SOD 100 MG CAP PO PRN (05:42)
[2019-07-02] MEDS: METHOCARBAMOL 500 MG TAB PO SCH ×3 (05:43→21:29)
[2019-07-02] MEDS: LEVOTHYROXINE SODIUM 50 MCG TAB PO SCH (05:44)
[2019-07-02] MEDS: FUROSEMIDE 20 MG TAB PO SCH ×2 (05:44→17:40)
[2019-07-02] MEDS: SERTRALINE HCL 50 MG TAB PO SCH ×3 (05:47→21:29)
[2019-07-02] MEDS: HYDROcodone-ACET 5/325MG TAB PO PRN (08:48)
[2019-07-02 09:00] VITALS: BP 122/78
[2019-07-02] MEDS: levoFLOXacin 500MG 100 ML IV SCH (10:22)
[2019-07-02] MEDS: dilTIAZem HCL 180MG ER CAP PO SCH (10:23)
[2019-07-02] MEDS: ENOXAPARIN SOD 40 MG/0.4 ML SYRINGE SC SCH (10:23)
[2019-07-02] MEDS: MEGESTROL ACETATE 20 MG TAB PO SCH ×2 (10:24→21:29)
[2019-07-02] MEDS: amLODIPine BESYLATE 5 MG TAB PO SCH (10:24)
[2019-07-02] MEDS: GABAPENTIN 300 MG CAP PO SCH ×2 (10:24→21:28)
[2019-07-02] MEDS: POLYETHYLENE GLYCOL 17 GM PWDR PO SCH (10:24)
[2019-07-02 12:48] VITALS: BP 100/62
[2019-07-02 17:00] VITALS: BP 111/65
[2019-07-02] MEDS: TAMSULOSIN HYDROCHLORIDE 0.4 MG CAP PO SCH (17:41)
[2019-07-02] MEDS: LIDOCAINE 5% TOPICAL PATCH TOP SCH (18:00)
[2019-07-02] MEDS: ZOLPIDEM TARTRATE 5 MG TAB PO SCH (21:28)
[2019-07-02] MEDS: ATORVASTATIN 20 MG TAB PO SCH (21:29)
[2019-07-02 22:00] VITALS: BP 106/62
== END 2019-07-02 22:30 | DRG 480 ==
LOC: ER 12:13 → EDSEX 12:13 → EDBD 12:13 → TELE 12:14 → SUATTDRO 16:54 → TELE-CENTR 18:14
PROVIDERS: ADMIT Internal Medicine Cardiovascular Disease; ATTEND Internal Medicine Cardiovascular Disease
PROC: BQ111ZZ Fluoroscopy of Left Hip using Low Osmolar Contrast (ICD-10-PCS; 2019-06-24)
PROC: 0QH706Z Insertion of Intramedullary Internal Fixation Device into Left Upper Femur, Open Approach (ICD-10-PCS; principal; 2019-06-24 08:18)
DX: S72.142A Displaced intertrochanteric fracture of left femur, initial encounter for closed fracture (principal); I50.31 Acute diastolic (congestive) heart failure; I13.0 Hypertensive heart and chronic kidney disease with heart failure and stage 1 through stage 4 chronic kidney disease, or unspecified chronic kidney disease; D68.59 Other primary thrombophilia; I25.10 Atherosclerotic heart disease of native coronary artery without angina pectoris; I34.0 Nonrheumatic mitral (valve) insufficiency; E78.5 Hyperlipidemia, unspecified; E03.9 Hypothyroidism, unspecified; G89.29 Other chronic pain; M19.90 Unspecified osteoarthritis, unspecified site; N40.0 Benign prostatic hyperplasia without lower urinary tract symptoms; I48.91 Unspecified atrial fibrillation; F41.9 Anxiety disorder, unspecified; Z60.2 Problems related to living alone; K59.00 Constipation, unspecified; W18.39XA Other fall on same level, initial encounter; Y93.89 Activity, other specified; Y92.89 Other specified places as the place of occurrence of the external cause; Y99.8 Other external cause status; Z88.0 Allergy status to penicillin; Z88.5 Allergy status to narcotic agent; Z88.8 Allergy status to other drugs, medicaments and biological substances; I25.2 Old myocardial infarction; Z95.0 Presence of cardiac pacemaker; Z95.5 Presence of coronary angioplasty implant and graft; Z79.01 Long term (current) use of anticoagulants; Z95.2 Presence of prosthetic heart valve; N18.2 Chronic kidney disease, stage 2 (mild)
CPT/HCPCS: 36415; 70450; 71045; 72192; 73502; 73700; 76000; 80048; 80053; 81001; 83735; 84484; 85014; 85018; 85025; 85610; 85730; 86850; 86900; 86901; 93005; 93306; 96374; 96375; 97110; 97163; 97530; C1713; C1769; G0378; J1100; J1956; J2250; J2405; J3490

== ENCOUNTER → 2019-06-22 | Outpatient (CLI) | payer MEDICARE, OTHER ==
[~2019-06-22] MED LIST changes: +SUCCINYLCHOLINE CHLORIDE 20 MG/ML 10ML VIAL IV ONE
[2019-06-22 15:44] LABS: Basophils # (auto) 0.1 10 ^3/uL (0-0.2); Basophils % (auto) 0.6 % (0.0-2.0); Eosinophils # (auto) 0.1 10 ^3/uL (0-0.8); Eosinophils % (auto) 0.3 % (0.0-7.0); Hemoglobin 16.7 g/dL (13.5-17.5); Lymphocytes % (auto) 5.6 % (10.0-50.0); Mean Corpuscular Hemoglobin 29.1 pg (28.0-32.0); Mean Corpuscular Hgb Conc. 32.7 g/dL (32.0-36.0); Monocytes # (auto) 1.3 10 ^3/uL (0-1.3); Monocytes % (auto) 7.5 % (0.0-12.0); Neutrophils # (auto) 14.9 10 ^3/uL (1.6-8.6); Nucleated Red Blood Cells % 0.3 %; Platelet Count (auto) 193 10^3/uL (140-450); Red Blood Cells 5.73 10^6/uL (4.5-5.90); Red Cell Distribution Width 15.3 % (11.8-14.3); White Blood Cell 17.3 10^3/uL (4.4-10.8)
[2019-06-22 16:10] LABS: BUN/Creatinine Ratio 15.8; Calcium 9.3 mg/dL (8.5-10.1); Potassium 3.8 mmol/L (3.5-5.1)
== END | disposition home or self-care (01) ==
LOC: Rad HDHVI 11:20
PROVIDERS: ATTEND Internal Medicine Cardiovascular Disease
DX: D64.9 Anemia, unspecified (principal); M85.88 Other specified disorders of bone density and structure, other site; M77.8 Other enthesopathies, not elsewhere classified
CPT/HCPCS: 36415; 73700; 80048; 85025

== ENCOUNTER → 2019-10-18 | Outpatient (CLI) | payer MEDICARE, OTHER ==
[~2019-10-18] MED LIST changes: -LORA2TAB10 PO; +LORA2TAB12 PO
== END | disposition home or self-care (01) ==
LOC: Rad HDHVI 11:21
PROVIDERS: ATTEND Internal Medicine Cardiovascular Disease
DX: I67.82 Cerebral ischemia (principal); I67.2 Cerebral atherosclerosis; G31.9 Degenerative disease of nervous system, unspecified; I63.9 Cerebral infarction, unspecified
CPT/HCPCS: 70450

== ENCOUNTER → 2019-10-19 | Outpatient (CLI) | payer MEDICARE, OTHER | END | disposition home or self-care (01) | LOC: Rad HDHVI 10:16 | PROVIDERS: ATTEND Internal Medicine | DX: M19.011 Primary osteoarthritis, right shoulder (principal); M85.88 Other specified disorders of bone density and structure, other site | CPT/HCPCS: 73030 ==

== ENCOUNTER 2020-02-01 16:06 | Inpatient (IN) | payer MEDICARE, OTHER ==
[~2020-02-01] VITALS: Ht 182.9 cm; Wt 67.7 kg
[2020-02-01 17:39] LABS: Basophils # (auto) 0.1 10 ^3/uL (0-0.2); Basophils % (auto) 0.4 % (0.0-2.0); Eosinophils # (auto) 0.2 10 ^3/uL (0-0.8); Eosinophils % (auto) 0.9 % (0.0-7.0); Hematocrit 47.1 % (41.0-53.0); Hemoglobin 15.4 g/dL (13.5-17.5); Lymphocytes # (auto) 1.4 10 ^3/uL (0.4-5.4); Lymphocytes % (auto) 8.4 % (10.0-50.0); Mean Corpuscular Hgb Conc. 32.8 g/dL (32.0-36.0); Mean Corpuscular Volume 88.5 fL (80.0-100.0); Monocytes # (auto) 1.3 10 ^3/uL (0-1.3); Monocytes % (auto) 7.7 % (0.0-12.0); Neutrophils # (auto) 14.2 10 ^3/uL (1.6-8.6); Neutrophils % (auto) 82.6 % (37.0-80.0); Platelet Count (auto) 197 10^3/uL (140-450); Red Blood Cells 5.32 10^6/uL (4.5-5.90); Red Cell Distribution Width 15.4 % (11.8-14.3); White Blood Cell 17.2 10^3/uL (4.4-10.8)
[2020-02-01 18:00] LABS: Albumin 3.3 g/dL (3.4-5.0); Magnesium 2.3 mg/dL (1.6-2.6); Potassium 3.7 mmol/L (3.5-5.1)
[2020-02-01 18:09] LABS: BUN/Creatinine Ratio 20.4; Bilirubin, Total 0.9 mg/dL (0.2-1.0); Total Protein 7.4 g/dL (6.4-8.2)
[2020-02-01] MEDS ORDERED: NITROGLYCERIN 0.4 MG SL TAB SL PRN (21:30)
[2020-02-01] MEDS: SODIUM CHLORIDE 0.9% 1,000 ML IV SCH (21:30)
[2020-02-01 21:37] LABS: Urine Bacteria MANY /hpf (None Seen); Urine Blood Negative /uL (Negative); Urine Hyaline Cast FEW /lpf (0 - 2); Urine Mucus FEW (None Seen); Urine Specific Gravity 1.021 (1.001-1.035); Urine WBC 40 /hpf (0 - 3)
[2020-02-01] MEDS ORDERED: cefTRIAXone 1GM/50ML D5W 50 ML IV ONE (22:00)
[2020-02-01] MEDS ORDERED: VANCOMYCIN PER PHARMACY 0 MG IV SCH (22:15)
[2020-02-01] MEDS ORDERED: VANCOMYCIN 1GM/250ML 250 ML IV ONE (22:15)
[2020-02-01] MEDS ORDERED: SODIUM CHLORIDE 0.9% 500 ML IV ONE (22:15)
[2020-02-01] MEDS: DOCUSATE SOD 100 MG CAP PO SCH (22:30)
[2020-02-01] MEDS: LEVALBUTEROL HCL 1.25 MG/3 ML NEB NEB SCH (22:36)
[2020-02-01 22:40] VITALS: BP 163/85
[2020-02-01] MEDS: MEGESTROL ACETATE 20 MG TAB PO SCH (22:40)
[2020-02-01 23:55] VITALS: BP 133/82
[2020-02-02] MEDS ORDERED: AMINO ACID INFUSION IN D5W 2,000 ML IV NR
[2020-02-02] MEDS: AZTREONAM 1GM INJ 1 GM in D5W 5% 50 ML IV SCH ×4 (00:54→18:30)
[2020-02-02 05:00] VITALS: BP 133/76
[2020-02-02 06:09] LABS: Basophils # (auto) 0.1 10 ^3/uL (0-0.2); Basophils % (auto) 0.5 % (0.0-2.0); Eosinophils # (auto) 0.2 10 ^3/uL (0-0.8); Eosinophils % (auto) 1.7 % (0.0-7.0); Hematocrit 43.7 % (41.0-53.0); Hemoglobin 14.3 g/dL (13.5-17.5); Lymphocytes # (auto) 1.3 10 ^3/uL (0.4-5.4); Lymphocytes % (auto) 10.4 % (10.0-50.0); Mean Corpuscular Hemoglobin 28.9 pg (28.0-32.0); Mean Corpuscular Hgb Conc. 32.7 g/dL (32.0-36.0); Mean Corpuscular Volume 88.6 fL (80.0-100.0); Monocytes # (auto) 0.9 10 ^3/uL (0-1.3); Monocytes % (auto) 7.2 % (0.0-12.0); Neutrophils % (auto) 80.2 % (37.0-80.0); Platelet Count (auto) 171 10^3/uL (140-450); Red Blood Cells 4.93 10^6/uL (4.5-5.90); Red Cell Distribution Width 15.8 % (11.8-14.3); White Blood Cell 12.5 10^3/uL (4.4-10.8)
[2020-02-02 06:26] LABS: Albumin 2.8 g/dL (3.4-5.0); Calcium 8.8 mg/dL (8.5-10.1); Magnesium 2.4 mg/dL (1.6-2.6); Potassium 3.1 mmol/L (3.5-5.1)
[2020-02-02 06:34] LABS: BUN/Creatinine Ratio 22.1; Bilirubin, Total 0.7 mg/dL (0.2-1.0); Phosphorus 1.6 mg/dL (2.5-4.90); Pre Albumin 14.1 mg/dL (20.0-40.0); Total Protein 6.4 g/dL (6.4-8.2)
[2020-02-02] MEDS: LEVALBUTEROL HCL 1.25 MG/3 ML NEB NEB SCH ×3 (08:48→22:48)
[2020-02-02 09:01] VITALS: BP 123/70
[2020-02-02] MEDS: CLOPIDOGREL BISULFATE 75 MG TAB PO SCH (10:00)
[2020-02-02] MEDS: amLODIPine BESYLATE 5 MG TAB PO SCH (10:00)
[2020-02-02] MEDS: DOCUSATE SOD 100 MG CAP PO SCH ×2 (10:00→22:27)
[2020-02-02] MEDS: POLYETHYLENE GLYCOL 17 GM PWDR PO SCH (10:00)
[2020-02-02] MEDS: MEGESTROL ACETATE 20 MG TAB PO SCH ×2 (10:00→22:27)
[2020-02-02] MEDS: LEVOTHYROXINE SODIUM 50 MCG TAB PO SCH (10:00)
[2020-02-02] MEDS: SODIUM CHLORIDE 0.9% 1,000 ML IV SCH (10:26)
[2020-02-02 11:17] LABS: INR 1.08 (0.9-1.15)
[2020-02-02] MEDS ORDERED: TPN PER PHARMACY 0 ML IV SCH (11:45)
[2020-02-02] MEDS ORDERED: POTASSIUM PHOSPHATE 44 MEQ in D5W 5% 250 ML IV ONE (12:00)
[2020-02-02 13:00] VITALS: BP 154/92
[2020-02-02] MEDS ORDERED: LIDOCAINE 1% (LOCAL ANESTH.) PF 5ml SDV ID ONE (13:30)
[2020-02-02 16:56] VITALS: BP 130/83
[2020-02-02 20:00] VITALS: BP 134/77
[2020-02-02] MEDS ORDERED: PPN PER PHARMACY IV SCH ×8 (20:00)
[2020-02-02 20:46] VITALS: BP 134/91
[2020-02-02] MEDS: SODIUM CHLOR 0.9% PF (SALINE LOCK) 10ML VIAL/SYR IV SCH (22:17)
[2020-02-02] MEDS: VANCOMYCIN 1GM/250ML 250 ML IV SCH (22:20)
[2020-02-03] MEDS ORDERED: DEXTROSE (50%) 50ML SYRG IV SCH
[2020-02-03] MEDS: SODIUM CHLORIDE 0.9% 1,000 ML IV SCH ×2 (00:10→14:09)
[2020-02-03] MEDS: ACCU-CHEK COMFORT CURVE STRIP VI SCH ×5 (00:25→23:51)
[2020-02-03] MEDS: AZTREONAM 1GM INJ 1 GM in D5W 5% 50 ML IV SCH ×5 (00:29→23:52)
[2020-02-03 05:00] VITALS: BP 134/83
[2020-02-03] MEDS: InsuLIN REG 1unit/0.01ml Soln (100units/ml) SC SCH ×5 (05:26→23:55)
[2020-02-03 06:08] LABS: Albumin 2.9 g/dL (3.4-5.0); Calcium 8.6 mg/dL (8.5-10.1); Magnesium 1.8 mg/dL (1.6-2.6); Potassium 3.6 mmol/L (3.5-5.1)
[2020-02-03 06:10] LABS: BUN/Creatinine Ratio 21.1
[2020-02-03 06:12] LABS: Bilirubin, Total 0.7 mg/dL (0.2-1.0); Total Protein 6.7 g/dL (6.4-8.2)
[2020-02-03] MEDS: LEVALBUTEROL HCL 1.25 MG/3 ML NEB NEB SCH ×3 (06:14→22:37)
[2020-02-03 06:45] LABS: Phosphorus 2.7 mg/dL (2.5-4.90)
[2020-02-03 09:00] VITALS: BP 121/79
[2020-02-03] MEDS: DOCUSATE SOD 100 MG CAP PO SCH ×2 (10:00→22:33)
[2020-02-03] MEDS: LEVOTHYROXINE SODIUM 50 MCG TAB PO SCH (10:11)
[2020-02-03] MEDS: CLOPIDOGREL BISULFATE 75 MG TAB PO SCH (10:11)
[2020-02-03] MEDS: amLODIPine BESYLATE 5 MG TAB PO SCH (10:13)
[2020-02-03] MEDS: MEGESTROL ACETATE 20 MG TAB PO SCH ×2 (10:14→22:33)
[2020-02-03] MEDS: SODIUM CHLOR 0.9% PF (SALINE LOCK) 10ML VIAL/SYR IV SCH ×2 (10:30→22:33)
[2020-02-03 13:00] VITALS: BP 152/92
[2020-02-03] MEDS: POLYETHYLENE GLYCOL 17 GM PWDR PO SCH (14:36)
[2020-02-03 17:02] VITALS: BP 144/83
[2020-02-03 20:00] VITALS: BP 150/99
[2020-02-03] MEDS ORDERED: TPN PER PHARMACY IV NR ×9 (20:00)
[2020-02-03 22:00] VITALS: BP 150/99
[2020-02-03] MEDS: VANCOMYCIN 1GM/250ML 250 ML IV SCH (22:32)
[2020-02-04] MEDS: SODIUM CHLORIDE 0.9% 1,000 ML IV SCH ×2 (03:37→21:03)
[2020-02-04 05:00] VITALS: BP 145/83
[2020-02-04] MEDS: ACCU-CHEK COMFORT CURVE STRIP VI SCH ×4 (05:48→23:50)
[2020-02-04] MEDS: AZTREONAM 1GM INJ 1 GM in D5W 5% 50 ML IV SCH ×4 (05:48→23:51)
[2020-02-04] MEDS: InsuLIN REG 1unit/0.01ml Soln (100units/ml) SC SCH ×4 (05:53→23:50)
[2020-02-04 06:20] LABS: Albumin 2.6 g/dL (3.4-5.0); BUN/Creatinine Ratio 23.7; Bilirubin, Total 0.6 mg/dL (0.2-1.0); Calcium 8.2 mg/dL (8.5-10.1); Magnesium 2.2 mg/dL (1.6-2.6); Phosphorus 2.6 mg/dL (2.5-4.90); Potassium 3.2 mmol/L (3.5-5.1); Total Protein 6.4 g/dL (6.4-8.2)
[2020-02-04] MEDS: LEVALBUTEROL HCL 1.25 MG/3 ML NEB NEB SCH ×3 (07:20→20:07)
[2020-02-04 09:00] VITALS: BP 138/88
[2020-02-04] MEDS: POLYETHYLENE GLYCOL 17 GM PWDR PO SCH (10:00)
[2020-02-04] MEDS: DOCUSATE SOD 100 MG CAP PO SCH ×2 (10:00→22:22)
[2020-02-04] MEDS: ONDANSETRON HCL 4 MG/2 ML VIAL IV PRN ×2 (10:55→18:13)
[2020-02-04] MEDS ORDERED: SODIUM CHLORIDE 0.9% 1,000 ML IV SCH (11:00)
[2020-02-04] MEDS: CLOPIDOGREL BISULFATE 75 MG TAB PO SCH (11:02)
[2020-02-04] MEDS: LEVOTHYROXINE SODIUM 50 MCG TAB PO SCH (11:02)
[2020-02-04] MEDS: MEGESTROL ACETATE 20 MG TAB PO SCH ×2 (11:02→22:23)
[2020-02-04] MEDS: amLODIPine BESYLATE 5 MG TAB PO SCH (11:03)
[2020-02-04] MEDS: SODIUM CHLOR 0.9% PF (SALINE LOCK) 10ML VIAL/SYR IV SCH ×2 (11:05→22:22)
[2020-02-04] MEDS ORDERED: POTASSIUM PHOSPHATE 44 MEQ in D5W 5% 250 ML IV ONE (11:30)
[2020-02-04 13:00] VITALS: BP 132/85
[2020-02-04 16:44] VITALS: BP 140/86
[2020-02-04] MEDS ORDERED: TPN PER PHARMACY IV NR ×11 (20:00)
[2020-02-04 21:23] VITALS: BP 140/86
[2020-02-04] MEDS: VANCOMYCIN 1GM/250ML 250 ML IV SCH (23:34)
[2020-02-05 04:59] VITALS: BP 125/69
[2020-02-05 05:46] LABS: Albumin 2.3 g/dL (3.4-5.0); Calcium 8.1 mg/dL (8.5-10.1); Magnesium 2.2 mg/dL (1.6-2.6); Potassium 3.6 mmol/L (3.5-5.1)
[2020-02-05 05:52] LABS: BUN/Creatinine Ratio 22.5; Bilirubin, Total 0.5 mg/dL (0.2-1.0); Phosphorus 2.8 mg/dL (2.5-4.90); Total Protein 5.7 g/dL (6.4-8.2)
[2020-02-05] MEDS: InsuLIN REG 1unit/0.01ml Soln (100units/ml) SC SCH ×4 (05:53→23:39)
[2020-02-05] MEDS: ACCU-CHEK COMFORT CURVE STRIP VI SCH ×4 (05:53→23:39)
[2020-02-05] MEDS: AZTREONAM 1GM INJ 1 GM in D5W 5% 50 ML IV SCH ×4 (06:18→23:39)
[2020-02-05] MEDS: LEVALBUTEROL HCL 1.25 MG/3 ML NEB NEB SCH ×3 (06:40→19:41)
[2020-02-05] MEDS: ONDANSETRON HCL 4 MG/2 ML VIAL IV PRN ×2 (09:32→16:15)
[2020-02-05] MEDS: MEGESTROL ACETATE 20 MG TAB PO SCH ×2 (09:35→21:49)
[2020-02-05] MEDS: LEVOTHYROXINE SODIUM 50 MCG TAB PO SCH (09:35)
[2020-02-05] MEDS: DOCUSATE SOD 100 MG CAP PO SCH ×2 (09:36→21:49)
[2020-02-05] MEDS: SODIUM CHLOR 0.9% PF (SALINE LOCK) 10ML VIAL/SYR IV SCH ×2 (09:36→21:49)
[2020-02-05] MEDS: CLOPIDOGREL BISULFATE 75 MG TAB PO SCH (09:36)
[2020-02-05] MEDS: amLODIPine BESYLATE 5 MG TAB PO SCH (09:44)
[2020-02-05 09:47] VITALS: BP 117/70
[2020-02-05] MEDS: POLYETHYLENE GLYCOL 17 GM PWDR PO SCH (09:47)
[2020-02-05] MEDS: SODIUM CHLORIDE 0.9% 1,000 ML IV SCH (11:24)
[2020-02-05 13:00] VITALS: BP 127/76
[2020-02-05 17:01] VITALS: BP 151/92
[2020-02-05] MEDS ORDERED: TPN PER PHARMACY IV NR ×10 (20:00)
[2020-02-05] MEDS: VANCOMYCIN 1GM/250ML 250 ML IV SCH (21:49)
[2020-02-05 22:00] VITALS: BP 122/66
[2020-02-06] MEDS: SODIUM CHLORIDE 0.9% 1,000 ML IV SCH ×2 (02:48→18:18)
[2020-02-06 05:00] VITALS: BP 124/77
[2020-02-06] MEDS: ACCU-CHEK COMFORT CURVE STRIP VI SCH ×3 (05:53→17:56)
[2020-02-06] MEDS: AZTREONAM 1GM INJ 1 GM in D5W 5% 50 ML IV SCH ×3 (05:53→18:18)
[2020-02-06] MEDS: InsuLIN REG 1unit/0.01ml Soln (100units/ml) SC SCH ×3 (05:54→18:18)
[2020-02-06 06:03] LABS: Basophils # (auto) 0.1 10 ^3/uL (0-0.2); Basophils % (auto) 0.5 % (0.0-2.0); Eosinophils # (auto) 0.4 10 ^3/uL (0-0.8); Hematocrit 39.6 % (41.0-53.0); Lymphocytes # (auto) 1.1 10 ^3/uL (0.4-5.4); Mean Corpuscular Hgb Conc. 32.9 g/dL (32.0-36.0); Mean Corpuscular Volume 88.2 fL (80.0-100.0); Monocytes # (auto) 0.9 10 ^3/uL (0-1.3); Monocytes % (auto) 8.5 % (0.0-12.0); Neutrophils # (auto) 7.6 10 ^3/uL (1.6-8.6); Platelet Count (auto) 186 10^3/uL (140-450); Red Blood Cells 4.49 10^6/uL (4.5-5.90); Red Cell Distribution Width 15.2 % (11.8-14.3)
[2020-02-06] MEDS: LEVALBUTEROL HCL 1.25 MG/3 ML NEB NEB SCH ×3 (06:35→22:52)
[2020-02-06 06:39] LABS: Potassium 3.9 mmol/L (3.5-5.1)
[2020-02-06 07:09] LABS: Albumin 2.3 g/dL (3.4-5.0); BUN/Creatinine Ratio 24.7; Bilirubin, Total 0.5 mg/dL (0.2-1.0); Calcium 8.1 mg/dL (8.5-10.1); Magnesium 2.3 mg/dL (1.6-2.6); Phosphorus 2.6 mg/dL (2.5-4.90); Total Protein 5.6 g/dL (6.4-8.2)
[2020-02-06 08:31] VITALS: BP 132/72
[2020-02-06] MEDS: SODIUM CHLOR 0.9% PF (SALINE LOCK) 10ML VIAL/SYR IV SCH ×2 (09:39→21:54)
[2020-02-06] MEDS: MEGESTROL ACETATE 20 MG TAB PO SCH ×2 (09:40→21:53)
[2020-02-06] MEDS: POLYETHYLENE GLYCOL 17 GM PWDR PO SCH (09:40)
[2020-02-06] MEDS: DOCUSATE SOD 100 MG CAP PO SCH ×2 (09:40→21:53)
[2020-02-06] MEDS: amLODIPine BESYLATE 5 MG TAB PO SCH (09:41)
[2020-02-06] MEDS: LEVOTHYROXINE SODIUM 50 MCG TAB PO SCH (09:41)
[2020-02-06] MEDS: CLOPIDOGREL BISULFATE 75 MG TAB PO SCH (09:41)
[2020-02-06 12:35] VITALS: BP 130/84
[2020-02-06 17:02] VITALS: BP 155/104
[2020-02-06] MEDS ORDERED: TPN PER PHARMACY IV NR ×10 (20:00)
[2020-02-06] MEDS: VANCOMYCIN 1GM/250ML 250 ML IV SCH (21:53)
[2020-02-06 22:00] VITALS: BP 143/79
[2020-02-07] MEDS: ACCU-CHEK COMFORT CURVE STRIP VI SCH ×4 (00:04→17:41)
[2020-02-07] MEDS: AZTREONAM 1GM INJ 1 GM in D5W 5% 50 ML IV SCH ×4 (00:04→17:41)
[2020-02-07] MEDS: InsuLIN REG 1unit/0.01ml Soln (100units/ml) SC SCH ×4 (00:07→17:47)
[2020-02-07 05:14] VITALS: BP 137/77
[2020-02-07] MEDS: LEVALBUTEROL HCL 1.25 MG/3 ML NEB NEB SCH ×3 (05:54→22:28)
[2020-02-07 06:57] LABS: Albumin 2.3 g/dL (3.4-5.0); Calcium 8.1 mg/dL (8.5-10.1); Magnesium 2.2 mg/dL (1.6-2.6); Potassium 3.8 mmol/L (3.5-5.1)
[2020-02-07 07:02] LABS: Bilirubin, Total 0.4 mg/dL (0.2-1.0); Phosphorus 2.9 mg/dL (2.5-4.90); Total Protein 5.7 g/dL (6.4-8.2)
[2020-02-07 08:51] VITALS: BP 141/83
[2020-02-07] MEDS: SODIUM CHLORIDE 0.9% 1,000 ML IV SCH ×2 (09:36→17:43)
[2020-02-07] MEDS: SODIUM CHLOR 0.9% PF (SALINE LOCK) 10ML VIAL/SYR IV SCH ×2 (10:13→21:52)
[2020-02-07] MEDS: amLODIPine BESYLATE 5 MG TAB PO SCH (10:14)
[2020-02-07] MEDS: DOCUSATE SOD 100 MG CAP PO SCH ×2 (10:14→22:04)
[2020-02-07] MEDS: CLOPIDOGREL BISULFATE 75 MG TAB PO SCH (10:15)
[2020-02-07] MEDS: POLYETHYLENE GLYCOL 17 GM PWDR PO SCH (10:15)
[2020-02-07] MEDS: MEGESTROL ACETATE 20 MG TAB PO SCH ×2 (10:15→22:04)
[2020-02-07] MEDS: LEVOTHYROXINE SODIUM 50 MCG TAB PO SCH (10:15)
[2020-02-07 13:16] VITALS: BP 150/80
[2020-02-07] MEDS ORDERED: TPN PER PHARMACY IV NR ×10 (20:00)
[2020-02-07 22:00] VITALS: BP 149/87
[2020-02-07] MEDS: VANCOMYCIN 1GM/250ML 250 ML IV SCH (22:04)
[2020-02-08 00:44] VITALS: BP 150/80
[2020-02-08 05:00] VITALS: BP 145/78
[2020-02-08] MEDS: AZTREONAM 1GM INJ 1 GM in D5W 5% 50 ML IV SCH ×5 (05:45→18:26)
[2020-02-08] MEDS: InsuLIN REG 1unit/0.01ml Soln (100units/ml) SC SCH ×4 (06:00→17:56)
[2020-02-08] MEDS: ACCU-CHEK COMFORT CURVE STRIP VI SCH ×4 (06:04→17:56)
[2020-02-08 07:26] LABS: Albumin 2.3 g/dL (3.4-5.0); Calcium 8.2 mg/dL (8.5-10.1); Potassium 3.8 mmol/L (3.5-5.1)
[2020-02-08 07:34] LABS: BUN/Creatinine Ratio 28.8; Bilirubin, Total 0.4 mg/dL (0.2-1.0); Magnesium 2.1 mg/dL (1.6-2.6); Phosphorus 3.2 mg/dL (2.5-4.90); Pre Albumin 26.2 mg/dL (20.0-40.0); Total Protein 5.9 g/dL (6.4-8.2)
[2020-02-08] MEDS: LEVALBUTEROL HCL 1.25 MG/3 ML NEB NEB SCH ×3 (07:45→23:22)
[2020-02-08 09:00] VITALS: BP 131/67
[2020-02-08] MEDS: DOCUSATE SOD 100 MG CAP PO SCH ×2 (09:52→22:08)
[2020-02-08] MEDS: CLOPIDOGREL BISULFATE 75 MG TAB PO SCH (09:53)
[2020-02-08] MEDS: LEVOTHYROXINE SODIUM 50 MCG TAB PO SCH (09:53)
[2020-02-08] MEDS: amLODIPine BESYLATE 5 MG TAB PO SCH (09:53)
[2020-02-08] MEDS: POLYETHYLENE GLYCOL 17 GM PWDR PO SCH (09:54)
[2020-02-08] MEDS: MEGESTROL ACETATE 20 MG TAB PO SCH ×2 (09:54→22:08)
[2020-02-08] MEDS: SODIUM CHLOR 0.9% PF (SALINE LOCK) 10ML VIAL/SYR IV SCH ×2 (09:54→22:08)
[2020-02-08 12:53] VITALS: BP 141/75
[2020-02-08] MEDS: SODIUM CHLORIDE 0.9% 1,000 ML IV SCH (16:38)
[2020-02-08] MEDS ORDERED: TPN PER PHARMACY IV NR ×11 (20:00)
[2020-02-08 21:47] VITALS: BP 146/87
[2020-02-08] MEDS: VANCOMYCIN 1GM/250ML 250 ML IV SCH (22:08)
[2020-02-09] MEDS: AZTREONAM 1GM INJ 1 GM in D5W 5% 50 ML IV SCH ×4 (00:35→17:37)
[2020-02-09] MEDS: ACCU-CHEK COMFORT CURVE STRIP VI SCH ×4 (00:41→17:25)
[2020-02-09] MEDS: InsuLIN REG 1unit/0.01ml Soln (100units/ml) SC SCH ×5 (00:42→17:46)
[2020-02-09 04:38] VITALS: BP 143/81
[2020-02-09] MEDS: LEVALBUTEROL HCL 1.25 MG/3 ML NEB NEB SCH ×3 (07:21→21:41)
[2020-02-09 09:00] VITALS: BP 129/79
[2020-02-09] MEDS: LEVOTHYROXINE SODIUM 50 MCG TAB PO SCH (09:37)
[2020-02-09] MEDS: DOCUSATE SOD 100 MG CAP PO SCH ×2 (09:37→21:46)
[2020-02-09] MEDS: CLOPIDOGREL BISULFATE 75 MG TAB PO SCH (09:37)
[2020-02-09] MEDS: amLODIPine BESYLATE 5 MG TAB PO SCH (09:38)
[2020-02-09] MEDS: MEGESTROL ACETATE 20 MG TAB PO SCH ×2 (09:38→21:47)
[2020-02-09] MEDS: POLYETHYLENE GLYCOL 17 GM PWDR PO SCH (09:39)
[2020-02-09] MEDS: SODIUM CHLOR 0.9% PF (SALINE LOCK) 10ML VIAL/SYR IV SCH (11:22)
[2020-02-09 12:46] VITALS: BP 123/84
[2020-02-09 16:47] VITALS: BP 123/84
[2020-02-09 20:00] VITALS: BP 129/79
[2020-02-09] MEDS: VANCOMYCIN 1GM/250ML 250 ML IV SCH (21:46)
[2020-02-09 22:00] VITALS: BP 138/84
[2020-02-10] MEDS: SODIUM CHLOR 0.9% PF (SALINE LOCK) 10ML VIAL/SYR IV SCH ×3 (02:47→22:07)
[2020-02-10] MEDS: AZTREONAM 1GM INJ 1 GM in D5W 5% 50 ML IV SCH ×4 (02:47→17:50)
[2020-02-10 05:00] VITALS: BP 137/87
[2020-02-10] MEDS: InsuLIN REG 1unit/0.01ml Soln (100units/ml) SC SCH ×4 (06:00→23:48)
[2020-02-10] MEDS: ACCU-CHEK COMFORT CURVE STRIP VI SCH ×5 (06:16→23:49)
[2020-02-10] MEDS: LEVALBUTEROL HCL 1.25 MG/3 ML NEB NEB SCH ×3 (06:18→22:35)
[2020-02-10 08:00] VITALS: BP 133/75
[2020-02-10] MEDS: DOCUSATE SOD 100 MG CAP PO SCH ×2 (10:23→22:04)
[2020-02-10] MEDS: MEGESTROL ACETATE 20 MG TAB PO SCH ×2 (10:23→22:06)
[2020-02-10] MEDS: CLOPIDOGREL BISULFATE 75 MG TAB PO SCH (10:24)
[2020-02-10] MEDS: POLYETHYLENE GLYCOL 17 GM PWDR PO SCH (10:24)
[2020-02-10] MEDS: amLODIPine BESYLATE 5 MG TAB PO SCH (10:24)
[2020-02-10] MEDS: LEVOTHYROXINE SODIUM 50 MCG TAB PO SCH (10:25)
[2020-02-10 12:00] VITALS: BP 124/72
[2020-02-10 16:56] VITALS: BP 144/89
[2020-02-10 22:00] VITALS: BP 132/82
[2020-02-10] MEDS: VANCOMYCIN 1GM/250ML 250 ML IV SCH (22:05)
[2020-02-11] MEDS ORDERED: AZTREONAM 1 GM INJ VIAL ONE (00:07)
[2020-02-11] MEDS: AZTREONAM 1GM INJ 1 GM in D5W 5% 50 ML IV SCH ×6 (00:34→18:00)
[2020-02-11 05:00] VITALS: BP 135/75
[2020-02-11] MEDS: InsuLIN REG 1unit/0.01ml Soln (100units/ml) SC SCH ×3 (06:00→18:00)
[2020-02-11] MEDS: ACCU-CHEK COMFORT CURVE STRIP VI SCH ×3 (06:37→18:00)
[2020-02-11 08:59] VITALS: BP 133/82
[2020-02-11] MEDS: MEGESTROL ACETATE 20 MG TAB PO SCH (10:58)
[2020-02-11] MEDS: POLYETHYLENE GLYCOL 17 GM PWDR PO SCH (10:58)
[2020-02-11] MEDS: SODIUM CHLOR 0.9% PF (SALINE LOCK) 10ML VIAL/SYR IV SCH (10:58)
[2020-02-11] MEDS: DOCUSATE SOD 100 MG CAP PO SCH (10:58)
[2020-02-11] MEDS: amLODIPine BESYLATE 5 MG TAB PO SCH (10:59)
[2020-02-11] MEDS: CLOPIDOGREL BISULFATE 75 MG TAB PO SCH (10:59)
[2020-02-11] MEDS: LEVOTHYROXINE SODIUM 50 MCG TAB PO SCH (10:59)
[2020-02-11 12:39] VITALS: BP 128/72
[2020-02-11 15:21] VITALS: BP 128/72
[2020-02-11] MEDS: LEVALBUTEROL HCL 1.25 MG/3 ML NEB NEB SCH (15:21)
[2020-02-11 16:52] VITALS: BP 140/70
== END 2020-02-11 18:14 | disposition hospice, home (50) | DRG 871 ==
LOC: ER 16:06 → TELE 16:07 → TELE-WESTW 22:55
PROVIDERS: ADMIT Internal Medicine Cardiovascular Disease; ATTEND Internal Medicine Cardiovascular Disease
PROC: 02HV33Z Insertion of Infusion Device into Superior Vena Cava, Percutaneous Approach (ICD-10-PCS; principal; 2020-02-02)
PROC: 3E0436Z Introduction of Nutritional Substance into Central Vein, Percutaneous Approach (ICD-10-PCS; 2020-02-02)
DX: A41.9 Sepsis, unspecified organism (principal); G93.41 Metabolic encephalopathy; E43 Unspecified severe protein-calorie malnutrition; E87.0 Hyperosmolality and hypernatremia; N39.0 Urinary tract infection, site not specified; I50.22 Chronic systolic (congestive) heart failure; E86.1 Hypovolemia; I11.0 Hypertensive heart disease with heart failure; I48.91 Unspecified atrial fibrillation; I25.10 Atherosclerotic heart disease of native coronary artery without angina pectoris; F32.9 Major depressive disorder, single episode, unspecified; E11.9 Type 2 diabetes mellitus without complications; N40.0 Benign prostatic hyperplasia without lower urinary tract symptoms; Z95.5 Presence of coronary angioplasty implant and graft; Z95.0 Presence of cardiac pacemaker; I25.2 Old myocardial infarction; Z83.3 Family history of diabetes mellitus; Z88.5 Allergy status to narcotic agent; Z88.0 Allergy status to penicillin
CPT/HCPCS: 36415; 36569; 36600; 51702; 71045; 80053; 80202; 81001; 82040; 82565; 82805; 82962; 83615; 83735; 83880; 84100; 84478; 84484; 85025; 85610; 85730; 87040; 92610; 93005; 94640; 96365; G0378; J0696; J1815; J2405; J7060